=== PATIENT | female | born 1950 | race African-American/Black ===

== ENCOUNTER 2022-09-23 22:43 | Inpatient (IN) | payer MEDICARE, OTHER ==
[~2022-09-23] VITALS: Ht 154.9 cm; Wt 62.1 kg
--- NOTE | 2022-09-23 23:06 | NUR ---
WILBER FROM [facility] TO ER BED 14. AAOX2-3 NOT IN ANY DISTRESS. BROUGHT IN FOR MEDICAL CLEARANCE FOR ADMISSION TO [facility]. PT HAS BEEN REPORTED TO BE AGGRESSIVE TOWARDS STAFF AT THE FACILITY AND REFUSING HER MEDS. PT WAS ALREADY PLACED ON A 5150 HOLD FOR GRAVE DISABILILTY AND DANGER TO OTHERS WRITTEN AT 2150. MD WAS AT THE BEDSIDE FOR EVAL. ORDERS RECEIVED NOTED AND CARRIED OUT. AT THIS TIME, PT IS UNABLE TO PROVIDE URINE SAMPLE.
--- NOTE | 2022-09-23 23:13 | NUR ---
COVID ANTIGEN SWAB COLLECTED AND SENT TO LAB
--- NOTE | 2022-09-23 23:30 | NUR ---
PAYROLL MASTER AT PT'S BEDSIDE
[2022-09-24 00:01] LABS: ALANINE AMINOTRANSFERASE 24 U/L (12-78); ALKALINE PHOSPHATASE 140 U/L (46-116); ASPARTATE AMINOTRANSFERASE 29 U/L (15-37); BILIRUBIN,DIRECT 0.1 mg/dL (0.0-0.2); BILIRUBIN,TOTAL 0.3 mg/dL (0.2-1.0); CALCIUM, SERUM 10.4 mg/dL (8.5-10.1); CARBON DIOXIDE 30 mmol/L (21-32); CHLORIDE 97 mmol/L (98-107); CREATININE 1.1 mg/dL (0.6-1.3); GLUCOSE 127 mg/dL (74-106); POTASSIUM 3.8 mmol/L (3.5-5.1); SODIUM SERUM 136 mmol/L (136-145); TOTAL PROTEIN, SERUM 8.7 g/dL (6.4-8.2); UREA NITROGEN, BLOOD 18 mg/dL (7-18)
[2022-09-24 00:04] LABS: ACETAMINOPHEN 0 ug/ml (10-30); ALCOHOL, BLOOD < 3 mg/dL (0-0)
[2022-09-24 00:35] LABS: BASOPHILS # (AUTO) 0.1 K/uL (0.0-0.2); BASOPHILS % (AUTO) 0.4 % (0.0-2.0); EOSINOPHILS % (AUTO) 1.7 % (0.0-6.0); HEMATOCRIT 40 % (33-45); HEMOGLOBIN 13.1 g/dL (11.5-14.8); LYMPHOCYTES # (AUTO) 1.6 K/uL (0.8-4.8); LYMPHOCYTES % (AUTO) 11.1 % (20.0-44.0); MEAN CORPUSCULAR HGB CONC 32 g/dl (31.0-36.0); MEAN CORPUSCULAR VOLUME 85 fL (82-100); MONOCYTES # (AUTO) 0.9 K/uL (0.1-1.30); MONOCYTES % (AUTO) 6.1 % (2.0-12.0); NEUTROPHILS # (AUTO) 11.3 K/uL (1.8-8.9); NEUTROPHILS % (AUTO) 80.7 % (43.0-81.0); PLATELET COUNT (AUTO) 397 K/uL (150-450); RED BLOOD CELL COUNT(AUTO) 4.78 MIL/uL (4.0-5.2)
[2022-09-24 02:08] LABS: BILIRUBIN,URINE NEGATIVE (NEGATIVE); COLOR,URINE YELLOW (YELLOW); LEUKOCYTE ESTERASE ,URINE NEGATIVE (NEGATIVE); NITRITE, URINE NEGATIVE (NEGATIVE); PH,URINE 6.5 (5.0-8.0); PROTEIN,URINE NEGATIVE (NEGATIVE); UGLUCOSE NEGATIVE (NEGATIVE); UROBILINOGEN,URINE 0.2 EU/dL (0.2)
[2022-09-24 05:05] LABS: BASOPHILS % (MANUAL) 0 % (0.0-2.0); EOSINOPHILS % (MANUAL) 1 % (0-4); LYMPHOCYTES % (MANUAL) 15 % (16-48); MONOCYTES % (MANUAL) 9 % (0-11.0); NEUTROPHILS % (MANUAL) 75 (42-76)
--- NOTE | 2022-09-24 08:44 | NUR ---
report given to marilyn YI for continuity of care.
[2022-09-24] MEDS ORDERED: LORA-259 PO (08:48)
[2022-09-24] MEDS ORDERED: OXCA300T4 PO (08:48)
[2022-09-24] MEDS ORDERED: SENN-175 PO (08:48)
[2022-09-24] MEDS ORDERED: HYDR25TA4 PO (08:48)
[2022-09-24] MEDS ORDERED: CETI-355 PO (08:48)
[2022-09-24] MEDS ORDERED: MAGN400O6 PO (08:48)
[2022-09-24] MEDS ORDERED: LISI-768 PO (08:48)
[2022-09-24] MEDS ORDERED: BISA10SU11 RC (08:48)
[2022-09-24] MEDS ORDERED: HALO5TAB PO (08:48)
[2022-09-24] MEDS ORDERED: ZOLP5TAB2 PO (08:48)
[2022-09-24] MEDS ORDERED: ACET325T53 PO (08:48)
[2022-09-24] MEDS ORDERED: GUAI100S9 PO (08:48)
[2022-09-24] MEDS ORDERED: FERR325T23 PO (08:48)
[2022-09-24] MEDS ORDERED: MULT-134 PO (08:48)
[2022-09-24] MEDS ORDERED: MAG30ORA PO (08:52)
--- NOTE | 2022-09-24 08:55 | NUR ---
RN - ADMISSION NOTES PATIENT WAS BROUGHT IN BY [facility] ER STAFF VIA HOSPITAL BED, PATIENT IS AWAKE,A/O X2,GUARDED,NO ACUTE DISTRESS NOTED. PATIENT IS UNDER DR. KENYON ( PSYCHIATRIST) DNP MELISSA ( REAL ESTATE INSPECTOR ) BOTH MADE AWARE OF THE ADMISSION. UPON FACE TO FACE INTERVIEW WITH THE PATIENT PATIENT IS A/O X2 ,GUARDED,HYPERVERBAL,UNABLE TO FOCUS ON ONE CONVERSATION. NOTED ALSO WITH EASILY IRRITABLE AND ANGRY BEHAVIOR. PATIENT DID ALLOW ME TO DO PARTIAL SKIN ASSESSMENT AND REFUSED TO HAVE PICTURE TAKEN ON SOME PARTS OF HER BODY. PATIENT REFUSED INITIAL BLOOD SUGAR CHECK AND MRSA SWAB.PATIENT IS UNCOOPERATIVE DURING THE ADMISSION PROCESS, NOTED WITH EPISODE OF YELLING AND ANGRY WITH THE POWER GENERATION TECHNICIAN. STATED" I'M NOT A PRISONER THAT YOU HAVE TO ASK ME QUESTIONS,I ANSWER YOU SOME AND THAT IS ENOUGH, I DON'T SIGN ANYTHING". PATIENT REFUSED TO SING ADMISSION PAPERS. CONTRABAND DONE. ORIENTED PATIENT IN THE ROOM AND UNIT POLICIES.ALL NEEDS ATTENDED AND ANTICIPATED. WILL CONT. MONITORING FOR SAFETY AND BEHAVIOR.
--- NOTE | 2022-09-24 08:56 | NUR ---
transferred to [facility] in stable condition.
[2022-09-24] MEDS ORDERED: BLOOD SUGAR DIAGNOSTIC 1 EACH STRIP IN ONE (10:00)
[2022-09-24] MEDS ORDERED: ACETAMINOPHEN 325 MG TABLET PO PRN (10:00)
[2022-09-24] MEDS ORDERED: MAGNESIUM HYDROXIDE 30 ML UDC PO PRN (10:00)
[2022-09-24] MEDS ORDERED: MAG HYDROX/AL HYDROX/SIMETH 30 ML UDC PO PRN (10:00)
[2022-09-24] MEDS ORDERED: ZOLPIDEM TARTRATE 5 MG TABLET PO PRN (10:00)
--- NOTE | 2022-09-24 10:57 | NUR ---
AMAURI Initial Discharge Plan: Patient currently resides at [place] [id number]; ([phone]). AMAURI spoke with Jazmyn Muller who stated that pt is welcomed back. AMAURI will work with the MD, family, and treatment team to help coordinate appropriate discharge.
--- NOTE | 2022-09-24 10:57 | NUR ---
Treatment Plan: Pt refused to sign treatment plan and was suspicious.
--- NOTE | 2022-09-24 10:57 | NUR ---
AMAURI Clinical Note: Pt placed on a 5150 hold for danger to others and GD. Per hold, pt has been aggressive at her facility. She has been yelling and refusing medications. [place] [address]; ([phone]). AMAURI spoke with Jazmyn Muller who stated that pt is welcomed back.
--- NOTE | 2022-09-24 11:24 | NUR ---
AMAURI Note: AMAURI spoke with Jazmyn Muller from [facility] ([phone]) who stated that pt has a probate conservator from the [facility]. Jazmyn stated that she will fax the probate conservator documents to this com writer.
--- NOTE | 2022-09-24 11:25 | NUR ---
Conservator: AMAURI contacted pt's probate conservator ([phone]) Terra and left a voicemail to fax documents and to contact this copywriter. SW left a detailed voicemail.
--- NOTE | 2022-09-24 11:57 | NUR ---
AMAURI NOTE: AMAURI CONTACTED THE COURT [phone] AND ASKED IF PT IS PROBATE CONSERVED THROUGH [facility] ARE [facility] ACCEPTABLE - THEY STATED THEY ARE UNSURE. AMAURI CONTACTED VENTILATION WORKER KADE ([phone]) AND STATED HE IS UNSURE AND THAT THIS WRITE SHOULD CALL PUBLIC GUARDIAN OFFICE. AMAURI CONTACTED PUBLIC GUARDIAN OFFICE AND SPOKE WITH KINGA ([phone]) SHE STATED THAT SHE BELIEVES THAT THE [facility] ARE NOT ACCEPTABLE DUE TO IT BEING IN [place].
--- NOTE | 2022-09-24 12:47 | NUR ---
Conservator: [facility][phone][facility] documents in patient's chart.
--- NOTE | 2022-09-24 13:36 | NUR ---
SW Family: SW attempted to contact pt's daughter Olline ([phone]) but phone number does not exist.
[2022-09-24 16:00] VITALS: BP 110/92
[2022-09-24] MEDS: OXCARBAZEPINE 150 MG TABLET PO SCH (17:21)
[2022-09-24] MEDS: LORAZEPAM 0.5 MG TABLET PO PRN (17:23)
--- NOTE | 2022-09-24 17:26 | NUR ---
RN-NOTES NOTED PATIENT SINGING AND TALKING TO SELF LOUDLY ,REDIRECTED AND ATIVAN 1MG P.O GIVEN PRN ORDER. WILL CONT. MONITORING FOR SAFETY AND BEHAVIOR.
--- NOTE | 2022-09-24 18:33 | NUR ---
RN-NOTES PATIENT LYING IN BED SLEEPING WITH BREATHING EVEN AND NONLABORED EASILY AROUSED,NO ACUTE DISTRESS NOTED.
--- NOTE | 2022-09-24 20:30 | NUR ---
RN NOTES: PATIENT RESTING IN BED,ANXIOUS EASILY AGITATED, PARANOID GUARDED, DISORGNIZED ,NO ACUTE DISTRESS NOTED PATIENT TALKING AND MUMBLING TO SELF. SAFETY PRECAUTIONS MAINTANIED, ENCOURAGED TO VERBALIZED ANY FEELING OR CONCERN,ALL NEEDS ATTENDED AND ANTICIPATED. WILL CONTINUE TO MONITORING FOR SAFETY AND BEHAVIOR.
[2022-09-24] MEDS ORDERED: OLANZAPINE 5 MG TABLET PO SCH (22:00)
--- NOTE | 2022-09-25 05:15 | NUR ---
RN NOTES:PT. REFUSED SKIN ASSESSMENT DUE TO UNCOOPERTIVE, AGGRESSIVE, NON REDIRECTABLE, ENCOURAGED X 3 PT. STRONGLY REFUSED, PER PT. STATED MY SKIN IS DRY .
[2022-09-25 07:00] LABS: CHOLESTEROL 150 mg/dL (<200); HDL CHOLESTEROL 53 mg/dL (40-60); LDL 86 mg/dL (0-99); TRIGLYCERIDES 49 mg/dL (30-150)
[2022-09-25 07:05] LABS: ALANINE AMINOTRANSFERASE 19 U/L (12-78); ALKALINE PHOSPHATASE 102 U/L (46-116); ASPARTATE AMINOTRANSFERASE 21 U/L (15-37); BILIRUBIN,TOTAL 0.3 mg/dL (0.2-1.0); CALCIUM, SERUM 9.1 mg/dL (8.5-10.1); CARBON DIOXIDE 25 mmol/L (21-32); CHLORIDE 99 mmol/L (98-107); CREATININE 1.2 mg/dL (0.6-1.3); GLUCOSE 157 mg/dL (74-106); POTASSIUM 3.7 mmol/L (3.5-5.1); SODIUM SERUM 135 mmol/L (136-145); TOTAL PROTEIN, SERUM 7.1 g/dL (6.4-8.2); UREA NITROGEN, BLOOD 18 mg/dL (7-18)
[2022-09-25 08:00] VITALS: BP 128/84
--- NOTE | 2022-09-25 08:40 | NUR ---
Probate Conservator: AMAURI received probate conservatorship [facility] ([phone]) documents from conservator and it has been placed in pt's chart. SW attempted to contact Terra second time 09/25/2022 at 8:40AM and left a detailed voicemail if she can provide history of pt how she came to [place] and if she has any support. AMAURI also stated that this sports book writer has followed up with public guardian office and they stated that grossman are not effective since it has been granted at [place] for probate conservator.
--- NOTE | 2022-09-25 08:56 | NUR ---
Probate Conservator: AMUARI received a call from probate conservatorship Terra ([phone]) who left a voicemail stating that she has had pt for about a year. She stated that pt left [place] and went to [place] because pt stated she is originally from [place]. Pt had stated to conservator that she wants to stay in [place]. Terra stated that she is aware of the grossman that are not effective in [facility]. She stated that her nursing facility is currently working on guardianship for pt. AMAURI shared this information to Dr. Martínez.
[2022-09-25] MEDS: OXCARBAZEPINE 150 MG TABLET PO SCH ×2 (09:04→17:46)
--- NOTE | 2022-09-25 09:10 | NUR ---
RN-NOTES ENTER[employer]ISE RESOURCE PLANNING CONSULTANT MADE ALVARO TORRES THAT PATIENT'S MEDICATION NEED TO BE RECONCILE.
--- NOTE | 2022-09-25 09:45 | NUR ---
WOUND CARE CONSULT: DISCUSSED DRY SKIN ISSUE WITH NURSING STAFF AND PROVIDER. EUCERIN CREAM RECOMMENDED AND DISCUSSED WITH NURSING STAFF.
[2022-09-25] MEDS: LORAZEPAM 0.5 MG TABLET PO PRN (10:46)
[2022-09-25] MEDS: MINERAL OIL/PETROLATUM,WHITE 120 GM JAR TP SCH (10:47)
--- NOTE | 2022-09-25 10:52 | NUR ---
RN-NOTES NOTED PATIENT SCREAMING AND YELLING WITH NO REASON. REDIRECTED AND ATIVAN 1MG P.O GIVEN PRN ORDER. WILL CONT. MONITORING FOR SAFETY AND BEHAVIORS.
--- NOTE | 2022-09-25 11:55 | NUR ---
RN-NOTES PATIENT IN BED AWAKE,QUIET,CALM NO ACUTE DISTRESS NOTED.
[2022-09-25 16:00] VITALS: BP 126/67
--- NOTE | 2022-09-25 16:47 | NUR ---
RN-NOTES PATIENT SCREAMING AND YELLING WITH THREATENING TONE OF VOICE AT THE STAFF IN THE NURSE STATION USING FOUL LANGUAGE. UNABLE TO REDIRECT. DR. KENYON MADE AWARE OF THE BEHAVIOR WITH T.O ORDER OF HALDOL 5MG IM ONCE AND BENADRYL 25MG IM ONCE. NOTED AND CARRIED OUT.
[2022-09-25] MEDS ORDERED: diphenhydrAMINE HCL 50 MG/ML VIAL IM ONE (17:00)
[2022-09-25] MEDS ORDERED: HALOPERIDOL LACTATE INJ 5 MG/ML VIAL IM ONE (17:00)
--- NOTE | 2022-09-25 19:14 | NUR ---
RN-NOTES PATIENT LYING IN BED AWAKE,A/O X1,GUARDED,CALM ,NO ACUTE DISTRESS NOTED. NOTED PATIENT WITH DEMANDING AND ARGUMENTATIVE BEHAVIOR. REFUSED SHOWER THIS SHIFT DESPITE ENCOURAGEMENT.ALL NEEDS ATTENDED AND ANTICIPATED. PATIENT ABLE TO AMBULATE WITH STEADY GAIT.WILL ENDORSE TO INCOMING NURSE FOR THE CONTINUITY OF CARE.
[2022-09-25 20:00] VITALS: BP 125/70
--- NOTE | 2022-09-25 20:21 | NUR ---
RN NOTES: PATIENT RESTING IN BED,ANXIOUS EASILY AGITATED, PARANOID GUARDED, DISORGNIZED ,HYPERVERBAL , DELUSIONAL , DISHELVED,POOR HYGIENE, REFUSED TO TAKE SHOWER, NO ACUTE DISTRESS NOTED PATIENT TALKING AND MUMBLING TO SELF. SAFETY PRECAUTIONS MAINTANIED, ENCOURAGED TO VERBALIZED ANY FEELING OR CONCERN,ALL NEEDS ATTENDED AND ANTICIPATED. WILL CONTINUE TO MONITORING FOR SAFETY AND BEHAVIOR.
[2022-09-25] MEDS: OLANZAPINE 5 MG TABLET PO SCH (22:16)
[2022-09-26 08:00] VITALS: BP 159/99
[2022-09-26] MEDS: LORAZEPAM 0.5 MG TABLET PO PRN (08:17)
[2022-09-26] MEDS: OXCARBAZEPINE 150 MG TABLET PO SCH ×2 (08:17→16:14)
[2022-09-26] MEDS: MINERAL OIL/PETROLATUM,WHITE 120 GM JAR TP SCH (08:18)
--- NOTE | 2022-09-26 08:20 | NUR ---
RN-NOTES NOTED PATIENT RESPONDING TO INTERNAL STIMULI,TALKING ,SINGING AND MUMBLING TO SELF. ATIVAN 1MG P.O GIVEN PRN ORDER. WILL CONT. MONITORING FOR SAFETY AND BEHAVIOR.
--- NOTE | 2022-09-26 09:20 | NUR ---
RN-NOTES PATIENT LYING IN BED AWAKE,A/OX1 ,QUIET,CALM NO ACUTE DISTRESS NOTED.
[2022-09-26 16:13] VITALS: BP 142/72
[2022-09-26] MEDS ORDERED: MAGNESIUM HYDROXIDE 30 ML UDC PO PRN (17:00)
[2022-09-26] MEDS ORDERED: LORAZEPAM 1 MG TABLET PO SCH (17:00)
[2022-09-26] MEDS ORDERED: OXCARBAZEPINE 150 MG TABLET PO SCH (17:00)
[2022-09-26] MEDS ORDERED: ACETAMINOPHEN 325 MG TABLET PO PRN (17:00)
[2022-09-26] MEDS ORDERED: MAG HYDROX/AL HYDROX/SIMETH 30 ML UDC PO PRN (17:00)
[2022-09-26] MEDS ORDERED: GUAIFENESIN 300 MG/15 ML UDC PO PRN (17:00)
[2022-09-26] MEDS ORDERED: BISACODYL SUPP (10 MG) 10 MG/SUPP.RECT SUPP.RECT RC PRN (17:00)
--- NOTE | 2022-09-26 18:40 | NUR ---
RN-NOTES PATIENT IS VISIBLE IN THE UNIT AWAKE,A/O X1,GUARDED,NOTED RESPONDING INTERNAL STIMULI,PRN MEDICATION GIVEN. NO ACUTE DISTRESS NOTED. NOTED PATIENT WITH DEMANDING ,EASILY ANGRY AND ARGUMENTATIVE BEHAVIOR. REFUSED SHOWER THIS SHIFT DESPITE ENCOURAGEMENT.ALL NEEDS ATTENDED AND ANTICIPATED. PATIENT ABLE TO AMBULATE WITH STEADY GAIT.WILL ENDORSE TO INCOMING NURSE FOR THE CONTINUITY OF CARE.
[2022-09-26] MEDS: OLANZAPINE 5 MG TABLET PO SCH (21:17)
[2022-09-26] MEDS ORDERED: ZOLPIDEM TARTRATE 5 MG TABLET PO SCH (22:00)
[2022-09-27 08:00] VITALS: BP 138/77
[2022-09-27] MEDS: OXCARBAZEPINE 150 MG TABLET PO SCH ×2 (08:21→16:54)
[2022-09-27] MEDS: SENNOSIDES 8.6 MG TABLET PO SCH (08:22)
[2022-09-27] MEDS: cetrizine 10 MG TABLET PO SCH (08:22)
[2022-09-27] MEDS: HYDROCHLOROTHIAZIDE 25 MG TABLET PO SCH (08:22)
[2022-09-27] MEDS: MULTIVITAMINS,THERAGRAN 1 UDTAB TABLET PO SCH (08:22)
[2022-09-27] MEDS: FERROUS SULFATE (325 MG) 325 MG/TAB TABLET PO SCH (08:22)
[2022-09-27] MEDS: LISINOPRIL (5MG) 5 MG TABLET PO SCH (08:23)
[2022-09-27] MEDS: MINERAL OIL/PETROLATUM,WHITE 120 GM JAR TP SCH (08:42)
[2022-09-27 16:00] VITALS: BP 144/73
[2022-09-27 20:27] VITALS: BP 137/60
[2022-09-27] MEDS: OLANZAPINE 5 MG TABLET PO SCH (21:18)
[2022-09-27] MEDS: LORAZEPAM 0.5 MG TABLET PO PRN (22:19)
[2022-09-28] MEDS: IBUPROFEN 400 MG TABLET PO PRN ×2 (00:40→16:46)
--- NOTE | 2022-09-28 00:41 | NUR ---
RN NOTE PATIENT REQUESTED MOTRIN PO AND CHANGED HER MIND NOT TO TAKE IT. CHARGE NURSE AWARE.
--- NOTE | 2022-09-28 04:41 | NUR ---
RN NOTE PATIENT C/O ITCHINESS ALL OVER HER BODY DUE TO PSORIASIS. NOTIFIED DR. ENGLAND WITH NEW ORDER OF BENADRYL 25MG PO Q8HR PRN NOTED AND CARRIED OUT.
[2022-09-28] MEDS: diphenhydrAMINE HCL ELIX 25 MG/10 ML UDC PO PRN ×3 (04:58→21:14)
--- NOTE | 2022-09-28 07:23 | NUR ---
[facility] RN NOTES RECEIVED PATIENT LYING IN BED, AWAKEN, A/O X2, CALM, WITHDRAWN, COOPERATIVE. REQUESTED FOR MORE LIPBALM. NO ACUTE DISTRESS NOTED. NO SOB NOTED, BREATHING EVEN AND UNLABORED, SAFETY MEASURES IN PLACE: BED AT LOWEST AND LOCKED POSITION, BED ALARM ON, FREQUENT VISUAL CHECK FOR SAFETY AND MONITORING BEHAVIOR. WILL CONTINUE PLAN OF CARE.
[2022-09-28 08:00] VITALS: BP 160/84
[2022-09-28] MEDS: MULTIVITAMINS,THERAGRAN 1 UDTAB TABLET PO SCH (08:59)
[2022-09-28] MEDS: SENNOSIDES 8.6 MG TABLET PO SCH (09:00)
[2022-09-28] MEDS: HYDROCHLOROTHIAZIDE 25 MG TABLET PO SCH (09:00)
[2022-09-28] MEDS: OXCARBAZEPINE 150 MG TABLET PO SCH ×2 (09:00→16:39)
[2022-09-28] MEDS: cetrizine 10 MG TABLET PO SCH (09:01)
[2022-09-28] MEDS: LISINOPRIL (5MG) 5 MG TABLET PO SCH (09:01)
[2022-09-28] MEDS: FERROUS SULFATE (325 MG) 325 MG/TAB TABLET PO SCH (09:01)
[2022-09-28] MEDS: MINERAL OIL/PETROLATUM,WHITE 120 GM JAR TP SCH (09:02)
--- NOTE | 2022-09-28 14:00 | NUR ---
[facility] RN NOTES - PT COMPLAINING OF GENERALIZED ITCH ON THE BACK, REQUESTED FOR DIPHENHYDRAMINE - ADMINISTERED 25 MG/10 ML PO. WILL CONTINUE TO MONITOR.
[2022-09-28 16:00] VITALS: BP 156/83
--- NOTE | 2022-09-28 18:51 | NUR ---
[facility] RN CLOSING NOTES PATIENT LYING IN BED, AWAKE A/OX2, CALM, WITHDRAWN, COOPERATIVE, MED COMPLIANT. NO ACUTE DISTRESS NOTED. NO SOB NOTED, BREATHING EVEN AND UNLABORED, SAFETY MEASURES IN MAINTAINED. ALL DUE MEDS GIVEN. ALL NEEDS MET, KEPT SAFE. WILL ENDORSE TO SPECIALTY PLANT SUPERVISOR NURSE.
[2022-09-28 20:00] VITALS: BP 142/72
[2022-09-28] MEDS: OLANZAPINE 5 MG TABLET PO SCH (21:12)
[2022-09-28] MEDS: VITAMINS A AND D 56.7 GM TUBE TP SCH (23:16)
[2022-09-29] MEDS: diphenhydrAMINE HCL ELIX 25 MG/10 ML UDC PO PRN ×2 (06:26→20:17)
[2022-09-29 08:00] VITALS: BP 144/76
[2022-09-29] MEDS: OXCARBAZEPINE 150 MG TABLET PO SCH ×2 (08:18→16:18)
[2022-09-29] MEDS: MULTIVITAMINS,THERAGRAN 1 UDTAB TABLET PO SCH (08:19)
[2022-09-29] MEDS: FERROUS SULFATE (325 MG) 325 MG/TAB TABLET PO SCH (08:19)
[2022-09-29] MEDS: LISINOPRIL (5MG) 5 MG TABLET PO SCH (08:19)
[2022-09-29] MEDS: SENNOSIDES 8.6 MG TABLET PO SCH (08:19)
[2022-09-29] MEDS: cetrizine 10 MG TABLET PO SCH (08:19)
[2022-09-29] MEDS: HYDROCHLOROTHIAZIDE 25 MG TABLET PO SCH (08:19)
[2022-09-29] MEDS: MINERAL OIL/PETROLATUM,WHITE 120 GM JAR TP SCH (08:41)
[2022-09-29] MEDS: VITAMINS A AND D 56.7 GM TUBE TP SCH ×2 (08:41→16:18)
[2022-09-29 16:00] VITALS: BP 120/63
[2022-09-29 20:09] VITALS: BP 155/90
[2022-09-29] MEDS: OLANZAPINE 5 MG TABLET PO SCH (21:03)
[2022-09-30] MEDS: IBUPROFEN 400 MG TABLET PO PRN (01:59)
[2022-09-30 08:00] VITALS: BP 145/77
[2022-09-30] MEDS: cetrizine 10 MG TABLET PO SCH (08:42)
[2022-09-30] MEDS: MULTIVITAMINS,THERAGRAN 1 UDTAB TABLET PO SCH (08:42)
[2022-09-30] MEDS: FERROUS SULFATE (325 MG) 325 MG/TAB TABLET PO SCH (08:43)
[2022-09-30] MEDS: SENNOSIDES 8.6 MG TABLET PO SCH (08:43)
[2022-09-30] MEDS: OXCARBAZEPINE 150 MG TABLET PO SCH ×2 (08:43→17:17)
[2022-09-30] MEDS: HYDROCHLOROTHIAZIDE 25 MG TABLET PO SCH (08:43)
[2022-09-30] MEDS: LISINOPRIL (5MG) 5 MG TABLET PO SCH (08:44)
[2022-09-30] MEDS: VITAMINS A AND D 56.7 GM TUBE TP SCH ×2 (08:44→17:17)
[2022-09-30] MEDS: MINERAL OIL/PETROLATUM,WHITE 120 GM JAR TP SCH (08:44)
--- NOTE | 2022-09-30 12:52 | NUR ---
Court Notification: SW contacted pt's probate conservatorship Cori ([phone]) and left a voicemail of pt's 1818 hearing.
--- NOTE | 2022-09-30 13:49 | NUR ---
Court Hearing: Patient's court hearing for 2070 was today and it was upheld for GD.
[2022-09-30 16:00] VITALS: BP 141/82
--- NOTE | 2022-09-30 19:45 | NUR ---
RN OPENING NOTES: RECEIVED PATIENT AWAKE IN BED, BED IN LOW POSITION, NO COMPLAIN OF PAIN AND DISCOMFORT AT THIS TIME ,ON ROOM AIR SATURATING WELL, PATIENT AMBULATES FROM BED TO RESTROOM REMIND TO CALL WHEN NEEDED ASSISTANCE, NO BEHAVIORAL CHANGES HAS BEEN OBSERVED, KEPT CLEAN AND DRY ALL NEEDS MET, CONTINUE TO MONITOR.
[2022-09-30 20:00] VITALS: BP 143/79
[2022-09-30 20:20] VITALS: BP 143/79
[2022-09-30] MEDS: OLANZAPINE 5 MG TABLET PO SCH (21:44)
--- NOTE | 2022-09-30 23:21 | NUR ---
RN NOTES: PATIENT WAS FOUND IN RESTROOM SITTING UNABLE TO STAND, ASSIST PATIENT BACK TO BED, V/S ARE WITHIN THE NORMAL RANGE, BLOOD SUGAR AT 123, BP- 129/68, HR-80, O2 SAT AT 95% ROOM AIR, TEMP-97.8 PATIENT COMPLAIN OF UPSET STOMACH JUST GAVE MAALOX 30MG PRN Q6H, STONE HAND OBSERVED A 15 SECONDS SHAKING, NOTIFY DR JOHN VALENTIN AND ORDER TO MONITOR, PATIENT WAS BACK TO HERSELF REMIND PATIENT TO CALL WHEN NEEDED ASSISTANCE, WILL CONTINUE TO MONITOR. -
[2022-10-01] MEDS: IBUPROFEN 400 MG TABLET PO PRN (06:31)
[2022-10-01 08:00] VITALS: BP 130/70
[2022-10-01] MEDS: SENNOSIDES 8.6 MG TABLET PO SCH (08:35)
[2022-10-01] MEDS: FERROUS SULFATE (325 MG) 325 MG/TAB TABLET PO SCH (08:35)
[2022-10-01] MEDS: MULTIVITAMINS,THERAGRAN 1 UDTAB TABLET PO SCH (08:36)
[2022-10-01] MEDS: LISINOPRIL (5MG) 5 MG TABLET PO SCH (08:36)
[2022-10-01] MEDS: OXCARBAZEPINE 150 MG TABLET PO SCH ×2 (08:36→16:28)
[2022-10-01] MEDS: cetrizine 10 MG TABLET PO SCH (08:36)
[2022-10-01] MEDS: HYDROCHLOROTHIAZIDE 25 MG TABLET PO SCH (08:36)
[2022-10-01] MEDS: VITAMINS A AND D 56.7 GM TUBE TP SCH ×2 (08:40→16:29)
[2022-10-01] MEDS: MINERAL OIL/PETROLATUM,WHITE 120 GM JAR TP SCH (08:41)
[2022-10-01] MEDS: LORAZEPAM 0.5 MG TABLET PO PRN (13:09)
--- NOTE | 2022-10-01 13:12 | NUR ---
RN-NOTES NOTED PATIENT TALKING TO SELF AND SINGING LOUDLY. ATIVAN 1MG P.O GIVEN PRN ORDER. WILL CONT. MONITORING FOR SAFETY AND BEHAVIOR.
--- NOTE | 2022-10-01 14:15 | NUR ---
RN-NOTES PATIENT LYING IN BED WAKE,A/O X2 CALM,NO ACUTE DISTRESS NOTED.
[2022-10-01 16:00] VITALS: BP 103/67
--- NOTE | 2022-10-01 17:43 | NUR ---
RN-NOTES PATIENT ISOLATIVE STAYS IN THE ROOM THIS SHIFT,REST TO ATTEND GROUPS DESPITE ENCOURAGEMENT,A/O X2,GUARDED,NO ACUTE DISTRESS,NO COMPLAIN NOTED THIS SHIFT. COMPLIANT WITH MEDICATIONS. PATIENT ABLE TO USE THE COMMODE NEXT TO HER BED. ALL NEEDS ATTENDED AND ANTICIPATED. WILL CONT. MONITORING FOR SAFETY AND BEHAVIOR.WILL ENDORSE TO THE NEXT SHIFT FOR CONTINUITY OF CARE. Addendum: 10/01/22 at 1748 by JARRET ALONSO RN CORRECTIONS ON MY ABOVE NOTES . PATIENT REFUSED GROUPS.
--- NOTE | 2022-10-01 19:30 | NUR ---
[facility] RN NOTE, RECEIVED PATIENT AWAKE AND IN BED, NO S/S OR COMPLAINTS OF PAIN AT THIS TIME. PATIENT IS DISPLAYING NO S/S OF APPARENT DISTRESS AT THIS TIME. PATIENT BREATHING IS UNLABORED WITH EQUAL RISE AND FALL OF THE CHEST. PATIENT IS ALERT AND ORIENTED X 2 ON ROOM AIR WITH A SPO2 98%. PATIENT IS COMPLIANT WITH MEDICATIONS, CONFUSED AT TIMES, ANXIOUS, PARANOID, RESPONDING TO INTERNAL STIMULI, AND COOPERATIVE. PATIENT DENIES SUICIDAL AND HOMICIDAL IDEATIONS AT THIS TIME. PATIENT ASSISTED WITH TURNING AND REPOSITIONING Q2HR AND PRN FOR COMFORT AND CIRCULATION. PATIENT HAS NO NEEDS AT THIS TIME. PATIENT EDUCATED ON THE USE OF THE CALL LOPEZ. PATIENT BED SIDE RAILS UP X 2 FOR SAFETY. PATIENT BED IS LOCKED AND LOW. WILL CONTINUE TO MONITOR THIS PATIENT Q15 MINUTES WITH THE HELP OF STAFF TO MAINTAIN SAFETY.
[2022-10-01 20:00] VITALS: BP 118/58
[2022-10-01] MEDS: OLANZAPINE 5 MG TABLET PO SCH (21:35)
[2022-10-01] MEDS: diphenhydrAMINE HCL ELIX 25 MG/10 ML UDC PO PRN (21:42)
--- NOTE | 2022-10-01 21:42 | NUR ---
[facility] RN NOTE, PATIENT HAS A COMPLAINT OF CHRONIC GENERALIZED PRURITUS AND IS REQUESTING BENADRYL AT THIS TIME. PATIENT VITAL SIGNS ARE STABLE. GAVE BENADRYL 25MG PO Q8HR PRN ORDERED. WILL REASSESS PATIENT AND I WILL CONTINUE TO MONITOR THIS PATIENT WITH THE HELP OF STAFF.
[2022-10-02 07:33] LABS: BASOPHILS % (AUTO) 0.5 % (0.0-2.0); EOSINOPHILS % (AUTO) 9.1 % (0.0-6.0); HEMATOCRIT 34 % (33-45); HEMOGLOBIN 10.7 g/dL (11.5-14.8); LYMPHOCYTES # (AUTO) 0.9 K/uL (0.8-4.8); LYMPHOCYTES % (AUTO) 12.8 % (20.0-44.0); MEAN CORPUSCULAR HGB CONC 32 g/dl (31.0-36.0); MEAN CORPUSCULAR VOLUME 86 fL (82-100); MONOCYTES # (AUTO) 0.5 K/uL (0.1-1.30); MONOCYTES % (AUTO) 7.5 % (2.0-12.0); NEUTROPHILS # (AUTO) 5.1 K/uL (1.8-8.9); NEUTROPHILS % (AUTO) 70.1 % (43.0-81.0); PLATELET COUNT (AUTO) 440 K/uL (150-450); RED BLOOD CELL COUNT(AUTO) 3.94 MIL/uL (4.0-5.2); WHITE BLOOD COUNT (AUTO) 7.3 K/uL (4.3-11.0)
[2022-10-02 07:49] LABS: CALCIUM, SERUM 8.6 mg/dL (8.5-10.1)
[2022-10-02 08:00] VITALS: BP 142/73
[2022-10-02] MEDS: SENNOSIDES 8.6 MG TABLET PO SCH (08:19)
[2022-10-02] MEDS: MINERAL OIL/PETROLATUM,WHITE 120 GM JAR TP SCH (08:19)
[2022-10-02] MEDS: cetrizine 10 MG TABLET PO SCH (08:19)
[2022-10-02] MEDS: VITAMINS A AND D 56.7 GM TUBE TP SCH ×2 (08:19→16:53)
[2022-10-02] MEDS: OXCARBAZEPINE 150 MG TABLET PO SCH ×2 (08:20→16:53)
[2022-10-02] MEDS: LISINOPRIL (5MG) 5 MG TABLET PO SCH (08:20)
[2022-10-02] MEDS: FERROUS SULFATE (325 MG) 325 MG/TAB TABLET PO SCH (08:20)
[2022-10-02] MEDS: HYDROCHLOROTHIAZIDE 25 MG TABLET PO SCH (08:20)
[2022-10-02] MEDS: MULTIVITAMINS,THERAGRAN 1 UDTAB TABLET PO SCH (08:22)
[2022-10-02 16:00] VITALS: BP 129/72
--- NOTE | 2022-10-02 20:03 | NUR ---
RN NOTES: PATIENT RESTING IN BED,ANXIOUS EASILY AGITATED, PARANOID GUARDED, DISORGNIZED ,NO ACUTE DISTRESS NOTED PATIENT TALKING AND MUMBLING TO SELF.MED COMPLIANT , SAFETY PRECAUTIONS MAINTANIED, ENCOURAGED TO VERBALIZED ANY FEELING OR CONCERN,ALL NEEDS ATTENDED AND ANTICIPATED. WILL CONTINUE TO MONITORING FOR SAFETY AND BEHAVIOR.
[2022-10-02 21:00] VITALS: BP 133/69
[2022-10-02] MEDS: OLANZAPINE 5 MG TABLET PO SCH (21:03)
[2022-10-03 08:00] VITALS: BP 164/86
[2022-10-03] MEDS: FERROUS SULFATE (325 MG) 325 MG/TAB TABLET PO SCH (08:41)
[2022-10-03] MEDS: MULTIVITAMINS,THERAGRAN 1 UDTAB TABLET PO SCH (08:41)
[2022-10-03] MEDS: OXCARBAZEPINE 150 MG TABLET PO SCH ×2 (08:41→16:32)
[2022-10-03] MEDS: cetrizine 10 MG TABLET PO SCH (08:41)
[2022-10-03] MEDS: LISINOPRIL (5MG) 5 MG TABLET PO SCH (08:41)
[2022-10-03] MEDS: HYDROCHLOROTHIAZIDE 25 MG TABLET PO SCH (08:42)
[2022-10-03] MEDS: MINERAL OIL/PETROLATUM,WHITE 120 GM JAR TP SCH (08:42)
[2022-10-03] MEDS: VITAMINS A AND D 56.7 GM TUBE TP SCH ×2 (08:43→16:31)
[2022-10-03] MEDS: SENNOSIDES 8.6 MG TABLET PO SCH (08:43)
[2022-10-03 16:00] VITALS: BP 141/64
--- NOTE | 2022-10-03 20:06 | NUR ---
[facility] RN NOTE, RECEIVED PATIENT AWAKE AND IN BED, NO S/S OR COMPLAINTS OF PAIN AT THIS TIME. PATIENT IS DISPLAYING NO S/S OF APPARENT DISTRESS AT THIS TIME. PATIENT BREATHING IS UNLABORED WITH EQUAL RISE AND FALL OF THE CHEST. PATIENT IS ALERT AND ORIENTED X 2 ON ROOM AIR WITH A SPO2 96%. PATIENT IS COMPLIANT WITH MEDICATIONS, CONFUSED AT TIMES, DEMANDING, POLITE, AND COOPERATIVE. PATIENT DENIES SUICIDAL AND HOMICIDAL IDEATIONS AT THIS TIME. PATIENT ASSISTED WITH TURNING AND REPOSITIONING Q2HR AND PRN FOR COMFORT AND CIRCULATION. PATIENT HAS NO NEEDS AT THIS TIME. PATIENT EDUCATED ON THE USE OF THE CALL LOPEZ. PATIENT BED SIDE RAILS UP X 2 FOR SAFETY. PATIENT BED IS LOCKED AND LOW. WILL CONTINUE TO MONITOR THIS PATIENT Q15 MINUTES WITH THE HELP OF STAFF TO MAINTAIN SAFETY.
[2022-10-03 20:52] VITALS: BP 116/58
[2022-10-03] MEDS: OLANZAPINE 5 MG TABLET PO SCH (22:10)
[2022-10-04 08:00] VITALS: BP 152/79
[2022-10-04] MEDS: OXCARBAZEPINE 150 MG TABLET PO SCH ×2 (08:20→16:53)
[2022-10-04] MEDS: LISINOPRIL (5MG) 5 MG TABLET PO SCH (08:21)
[2022-10-04] MEDS: MULTIVITAMINS,THERAGRAN 1 UDTAB TABLET PO SCH (08:21)
[2022-10-04] MEDS: HYDROCHLOROTHIAZIDE 25 MG TABLET PO SCH (08:21)
[2022-10-04] MEDS: FERROUS SULFATE (325 MG) 325 MG/TAB TABLET PO SCH (08:21)
[2022-10-04] MEDS: cetrizine 10 MG TABLET PO SCH (08:21)
[2022-10-04] MEDS: VITAMINS A AND D 56.7 GM TUBE TP SCH ×2 (08:22→16:53)
[2022-10-04] MEDS: MINERAL OIL/PETROLATUM,WHITE 120 GM JAR TP SCH (08:22)
[2022-10-04] MEDS: SENNOSIDES 8.6 MG TABLET PO SCH (08:23)
[2022-10-04 16:00] VITALS: BP 164/87
[2022-10-04 20:49] VITALS: BP 150/78
[2022-10-04] MEDS: OLANZAPINE 5 MG TABLET PO SCH (21:25)
[2022-10-05 08:00] VITALS: BP 151/88
--- NOTE | 2022-10-05 08:03 | NUR ---
Discharge Note: Patient will be discharged to [facility] facility to [facility] [address] [place] [address]; ([phone]) via Ambulance transportation at 2PM. Anesthesia Technician spoke with Jazmyn aircraft lay out worker at [facility] ([phone]) who stated patient will be accepted at facility today. Patient is alert and oriented x2 and is not able to plan for self-care at this time but is willing to accept care provided by the facility. Patient denies any suicidal or homicidal ideations. Patient is aware and agreeable with discharge plans. Patients probate conservator from [facility] ([phone]) is aware. Patient will continue to follow-up with (psychiatrist) Dr. Butcher located at [address] [place] [address]; ([phone]) and (lath tier) Dr. Flowers [address], [place] [address]; ([phone]). Patient presents with euthymic mood and congruent affect.
[2022-10-05] MEDS: cetrizine 10 MG TABLET PO SCH (08:19)
[2022-10-05 08:20] VITALS: BP 151/88
[2022-10-05] MEDS: OXCARBAZEPINE 150 MG TABLET PO SCH (08:20)
[2022-10-05] MEDS: SENNOSIDES 8.6 MG TABLET PO SCH (08:20)
[2022-10-05] MEDS: LISINOPRIL (5MG) 5 MG TABLET PO SCH (08:20)
[2022-10-05] MEDS: HYDROCHLOROTHIAZIDE 25 MG TABLET PO SCH (08:20)
[2022-10-05] MEDS: MULTIVITAMINS,THERAGRAN 1 UDTAB TABLET PO SCH (08:20)
[2022-10-05] MEDS: FERROUS SULFATE (325 MG) 325 MG/TAB TABLET PO SCH (08:20)
[2022-10-05] MEDS: VITAMINS A AND D 56.7 GM TUBE TP SCH (08:21)
[2022-10-05] MEDS: MINERAL OIL/PETROLATUM,WHITE 120 GM JAR TP SCH (08:21)
--- NOTE | 2022-10-05 15:40 | NUR ---
NURSE NOTE: 72 YEAR OLD FEMALE DISCHARGED TO [facility] IN [place]. COMPLIANT WITH MEDS, COOPERATIVE WITH TREATMENT PLANS. PT DENIES SI/HI AND INSTRUCTED TO CALL 911 IF DEVELOPING SI/HI. BEHAVIOR IMPROVED, PSYCHIATRIC TX PLANS MET, MEDICAL TX PLANS DEFERRED TO CONTINUAL MONITORING. EDUCATED PT ABOUT AFTER PLAN CARE AND COPY PROVIDED. RETURNED PERSONAL BELONGINGS TO PT. BOTH DR KENYON AND DR DONG DISCHARGED PT. HOLD DISCONTINUED BY DR KENYON. MEDICATIONS RECONCILED WITH DR KENYON AND DR DONG. REPORT GIVEN TO JAIRO SAMANIEGO AT [facility] FOR CONTINUITY OF CARE. PT SIGNED DISCHARGE PAPERWORK. PT REFUSED SKIN PICTURES AT THIS TIME. PT LEFT UNIT AT 1340 VIA AMBULANCE. Addendum: 10/05/22 at 1600 by GREGORIA THOMAS RN PT TO F/U WITH DR MOULTON AND DR LYNCH AT [facility].
== END 2022-10-05 15:44 | DRG 885 ==
LOC: ER 22:54 → TRANSITION 09-24 02:56 → GPS 09-24 08:50
PROVIDERS: ADMIT Psychiatry & Neurology Psychiatry; ATTEND Internal Medicine
DX: F25.0 Schizoaffective disorder, bipolar type (principal); N18.9 Chronic kidney disease, unspecified; F29 Unspecified psychosis not due to a substance or known physiological condition; Z20.822 Contact with and (suspected) exposure to COVID-19; G40.909 Epilepsy, unspecified, not intractable, without status epilepticus; I12.9 Hypertensive chronic kidney disease with stage 1 through stage 4 chronic kidney disease, or unspecified chronic kidney disease; F41.9 Anxiety disorder, unspecified; F32.A Depression, unspecified; R60.9 Edema, unspecified; L40.9 Psoriasis, unspecified; D64.9 Anemia, unspecified; Z88.0 Allergy status to penicillin; Z88.8 Allergy status to other drugs, medicaments and biological substances; Z88.6 Allergy status to analgesic agent; Z91.011 Allergy to milk products; Z73.6 Limitation of activities due to disability; D72.829 Elevated white blood cell count, unspecified; L30.9 Dermatitis, unspecified
CPT/HCPCS: 36415; 71045-TC; 80048-TC; 80053-TC; 80061-TC; 80076-TC; 82962-TC; 85025-TC; 97112-TC; 97116-TC; 97530-TC; C9803; G0480; J1200; J1630; Q0163

== ENCOUNTER 2023-05-08 01:48 | Inpatient (IN) | payer MEDICARE, OTHER ==
[~2023-05-08] VITALS: Ht 180.3 cm; Wt 59.0 kg
[~2023-05-08 01:48] MED LIST: ACET325T53 PO; BISA10SU11 RC; CETI-355 PO; CLON0.1T PO; DIPH25CA83 PO; FERR325T23 PO; GUAI100S9 PO; HALO5TAB PO; HYDR25TA4 PO; IBUP-1953 PO; LISI-768 PO; MAG30ORA PO; MAGN400O6 PO; MULT-134 PO; OXCA300T4 PO; SENN-175 PO; ZOLP5TAB2 PO
[2023-05-08 04:07] LABS: AMPHETAMINE, URINE NEGATIVE (NEGATIVE); BARBITURATE, URINE NEGATIVE (NEGATIVE); BENZODIAZEPINE, URINE NEGATIVE (NEGATIVE); CANNABINOID, URINE POSITIVE (NEGATIVE); COCCAINE, URINE NEGATIVE (NEGATIVE); OPIATE, URINE NEGATIVE (NEGATIVE); PHENCYCLIDINE SCREEN,URINE NEGATIVE (NEGATIVE)
[2023-05-08 04:12] LABS: APPEARANCE,URINE CLEAR (CLEAR); BILIRUBIN,URINE NEGATIVE (NEGATIVE); BLOOD, URINE TRACE-INTA Ery/uL (NEGATIVE); COLOR,URINE YELLOW (YELLOW); KETONES,URINE NEGATIVE (NEGATIVE); LEUKOCYTE ESTERASE ,URINE NEGATIVE (NEGATIVE); NITRITE, URINE NEGATIVE (NEGATIVE); PROTEIN,URINE NEGATIVE (NEGATIVE); UGLUCOSE NEGATIVE (NEGATIVE); UROBILINOGEN,URINE 0.2 EU/dL (0.2)
[2023-05-08 08:13] LABS: EOSINOPHILS # (AUTO) 0.4 K/uL (0.0-0.7); EOSINOPHILS % (AUTO) 9.5 % (0.0-6.0); HEMATOCRIT 41 % (33-45); HEMOGLOBIN 13.1 g/dL (11.5-14.8); LYMPHOCYTES % (AUTO) 24.7 % (20.0-44.0); MEAN CORPUSCULAR HEMOGLOBIN 28 PG (26.0-33.0); MEAN CORPUSCULAR HGB CONC 32 g/dl (31.0-36.0); MEAN CORPUSCULAR VOLUME 89 fL (82-100); MONOCYTES # (AUTO) 0.3 K/uL (0.1-1.30); MONOCYTES % (AUTO) 7.8 % (2.0-12.0); NEUTROPHILS # (AUTO) 2.3 K/uL (1.8-8.9); PLATELET COUNT (AUTO) 301 K/uL (150-450); RED BLOOD CELL COUNT(AUTO) 4.66 MIL/uL (4.0-5.2); WHITE BLOOD COUNT (AUTO) 4.1 K/uL (4.3-11.0)
[2023-05-08 08:18] LABS: CALCIUM, SERUM 9.9 mg/dL (8.5-10.1); CARBON DIOXIDE 27 mmol/L (21-32); CHLORIDE 98 mmol/L (98-107); CREATININE 0.7 mg/dL (0.6-1.3); GLUCOSE 85 mg/dL (74-106); SODIUM SERUM 131 mmol/L (136-145); UREA NITROGEN, BLOOD 17 mg/dL (7-18)
[2023-05-08 08:23] LABS: ALANINE AMINOTRANSFERASE 17 U/L (12-78); ALBUMIN 3.9 g/dL (3.4-5.0); ALKALINE PHOSPHATASE 113 U/L (46-116); ASPARTATE AMINOTRANSFERASE 20 U/L (15-37); BILIRUBIN,DIRECT 0.1 mg/dL (0.0-0.2); BILIRUBIN,TOTAL 0.3 mg/dL (0.2-1.0); SALICYLATE 4.8 mg/dL (2.8-20.0); TOTAL PROTEIN, SERUM 8.7 g/dL (6.4-8.2)
[2023-05-08 08:25] LABS: ACETAMINOPHEN <10 ug/ml (10-30); ALCOHOL, BLOOD < 3 mg/dL (0-10)
[2023-05-08] MEDS ORDERED: LISI-768 PO (08:57)
[2023-05-08] MEDS ORDERED: OLAN5TAB3 PO (08:57)
[2023-05-08] MEDS ORDERED: ACETAMINOPHEN 325 MG TABLET PO PRN (10:30)
[2023-05-08] MEDS ORDERED: BLOOD SUGAR DIAGNOSTIC 1 EACH STRIP IN ONE (10:30)
[2023-05-08] MEDS ORDERED: MAGNESIUM HYDROXIDE 30 ML UDC PO PRN (10:30)
[2023-05-08] MEDS ORDERED: MAG HYDROX/AL HYDROX/SIMETH 30 ML UDC PO PRN (10:30)
[2023-05-08] MEDS ORDERED: LORAZEPAM 0.5 MG TABLET PO PRN (10:30)
[2023-05-08 11:01] VITALS: BP 160/85; TEMP 98; O2SAT 100
[2023-05-08] MEDS: OXCARBAZEPINE 150 MG TABLET PO SCH ×2 (12:53→16:54)
[2023-05-08 16:00] VITALS: BP 188/100; TEMP 97.9; O2SAT 96
[2023-05-08 20:00] VITALS: BP 130/69; TEMP 97.9; O2SAT 99
[2023-05-08] MEDS: OLANZAPINE 10 MG TABLET PO SCH (21:49)
[2023-05-09 07:00] LABS: CALCIUM, SERUM 9.5 mg/dL (8.5-10.1); CREATININE 0.8 mg/dL (0.6-1.3); PHOSPHORUS 3.8 mg/dL (2.5-4.9)
[2023-05-09 07:02] LABS: THYROID STIMULATING HORMONE 1.109 uIU/mL (0.358-3.74); URIC ACID 5.5 mg/dL (2.6-7.2)
[2023-05-09 08:00] VITALS: BP 111/59; TEMP 98; O2SAT 97
[2023-05-09] MEDS: OXCARBAZEPINE 150 MG TABLET PO SCH ×2 (08:17→17:21)
[2023-05-09 16:00] VITALS: BP 114/70; TEMP 97.8; O2SAT 99
[2023-05-09 20:54] VITALS: BP 111/63; TEMP 98.2; O2SAT 96
[2023-05-09] MEDS: MUPIROCIN OINT 2% 22 GM TUBE TP SCH (21:00)
[2023-05-09] MEDS: OLANZAPINE 10 MG TABLET PO SCH (21:43)
[2023-05-09] MEDS ORDERED: MUPIROCIN OINT 2% 22 GM TUBE ONE (23:28)
[2023-05-10] MEDS: MUPIROCIN OINT 2% 22 GM TUBE TP SCH ×2 (00:15→08:37)
[2023-05-10 08:00] VITALS: BP 149/80; TEMP 97.8; O2SAT 98
[2023-05-10] MEDS: ENSURE ENLIVE 237 ML LIQUID (VANILLA) PO SCH (08:23)
[2023-05-10] MEDS: OXCARBAZEPINE 150 MG TABLET PO SCH ×2 (08:24→17:17)
[2023-05-10] MEDS ORDERED: MAG HYDROX/AL HYDROX/SIMETH 30 ML UDC PO PRN (08:30)
[2023-05-10] MEDS ORDERED: BISACODYL SUPP (10 MG) 10 MG/SUPP.RECT SUPP.RECT RC PRN (08:30)
[2023-05-10] MEDS ORDERED: diphenhydrAMINE HCL 25 MG CAPSULE PO PRN (08:30)
[2023-05-10] MEDS ORDERED: ACETAMINOPHEN 325 MG TABLET PO PRN (08:30)
[2023-05-10] MEDS ORDERED: CLONIDINE HCL 0.1 MG TABLET PO PRN (08:30)
[2023-05-10] MEDS ORDERED: MAGNESIUM HYDROXIDE 30 ML UDC PO PRN (08:30)
[2023-05-10] MEDS ORDERED: IBUPROFEN 400 MG TABLET PO PRN (08:30)
[2023-05-10] MEDS: FERROUS SULFATE (325 MG) 325 MG/TAB TABLET PO SCH (08:39)
[2023-05-10] MEDS: LISINOPRIL (5MG) 5 MG TABLET PO SCH (08:40)
[2023-05-10] MEDS: HYDROCHLOROTHIAZIDE 25 MG TABLET PO SCH (08:40)
[2023-05-10] MEDS: SENNOSIDES 8.6 MG TABLET PO SCH (08:41)
[2023-05-10] MEDS ORDERED: MUPIROCIN OINT 2% 22 GM TUBE NS SCH (11:10)
[2023-05-10 16:00] VITALS: BP 148/77; TEMP 97.8; O2SAT 99
[2023-05-10 21:07] VITALS: BP 126/64; TEMP 98.4; O2SAT 96
[2023-05-10] MEDS: OLANZAPINE 10 MG TABLET PO SCH (21:44)
[2023-05-10] MEDS: MUPIROCIN OINT 2% 22 GM TUBE NS SCH (21:44)
[2023-05-11 08:00] VITALS: BP 152/82; TEMP 97.8; O2SAT 97
[2023-05-11] MEDS: FERROUS SULFATE (325 MG) 325 MG/TAB TABLET PO SCH (09:33)
[2023-05-11] MEDS: OXCARBAZEPINE 150 MG TABLET PO SCH ×2 (09:33→17:13)
[2023-05-11] MEDS: LISINOPRIL (5MG) 5 MG TABLET PO SCH (09:33)
[2023-05-11] MEDS: SENNOSIDES 8.6 MG TABLET PO SCH (09:34)
[2023-05-11] MEDS: VITAMINS A AND D 56.7 GM TUBE TP SCH (09:34)
[2023-05-11] MEDS: ENSURE ENLIVE 237 ML LIQUID (VANILLA) PO SCH (09:34)
[2023-05-11] MEDS: HYDROCHLOROTHIAZIDE 25 MG TABLET PO SCH (09:34)
[2023-05-11] MEDS: MUPIROCIN OINT 2% 22 GM TUBE NS SCH ×2 (09:35→21:12)
[2023-05-11 16:00] VITALS: BP 144/90; TEMP 98.1; O2SAT 100
[2023-05-11 20:24] VITALS: BP 137/76; TEMP 98.4; O2SAT 99
[2023-05-11] MEDS: OLANZAPINE 10 MG TABLET PO SCH (21:11)
[2023-05-12 08:00] VITALS: BP 143/82; TEMP 98.7; O2SAT 98
[2023-05-12] MEDS: ENSURE ENLIVE 237 ML LIQUID (VANILLA) PO SCH (08:41)
[2023-05-12] MEDS: OXCARBAZEPINE 150 MG TABLET PO SCH ×3 (08:41→16:08)
[2023-05-12] MEDS: LISINOPRIL (5MG) 5 MG TABLET PO SCH (08:41)
[2023-05-12] MEDS: SENNOSIDES 8.6 MG TABLET PO SCH (08:41)
[2023-05-12] MEDS: HYDROCHLOROTHIAZIDE 25 MG TABLET PO SCH (08:41)
[2023-05-12] MEDS: FERROUS SULFATE (325 MG) 325 MG/TAB TABLET PO SCH (08:41)
[2023-05-12] MEDS: VITAMINS A AND D 56.7 GM TUBE TP SCH (08:43)
[2023-05-12] MEDS: MUPIROCIN OINT 2% 22 GM TUBE NS SCH ×2 (08:43→20:54)
[2023-05-12] MEDS: OLANZAPINE 5 MG TABLET PO SCH ×2 (13:40→16:08)
[2023-05-12 16:00] VITALS: BP 155/87; TEMP 98.1; O2SAT 100
[2023-05-12 20:00] VITALS: BP 161/65; TEMP 98.6; O2SAT 98
[2023-05-12] MEDS: OLANZAPINE 10 MG TABLET PO SCH (21:00)
[2023-05-12] MEDS ORDERED: GUAIFENESIN/D-METHORPHAN HB 5 ML UDC PO PRN (22:00)
[2023-05-13 05:00] VITALS: BP 145/76; O2SAT 98
[2023-05-13 08:00] VITALS: BP 129/77; TEMP 97.9; O2SAT 100
[2023-05-13] MEDS: SENNOSIDES 8.6 MG TABLET PO SCH (08:15)
[2023-05-13] MEDS: ENSURE ENLIVE 237 ML LIQUID (VANILLA) PO SCH (08:15)
[2023-05-13] MEDS: LISINOPRIL (5MG) 5 MG TABLET PO SCH (08:16)
[2023-05-13] MEDS: OLANZAPINE 5 MG TABLET PO SCH ×2 (08:16→16:06)
[2023-05-13] MEDS: OXCARBAZEPINE 150 MG TABLET PO SCH ×3 (08:16→16:06)
[2023-05-13] MEDS: VITAMINS A AND D 56.7 GM TUBE TP SCH (08:17)
[2023-05-13] MEDS: HYDROCHLOROTHIAZIDE 25 MG TABLET PO SCH (08:17)
[2023-05-13] MEDS: FERROUS SULFATE (325 MG) 325 MG/TAB TABLET PO SCH (08:17)
[2023-05-13] MEDS: MUPIROCIN OINT 2% 22 GM TUBE NS SCH ×2 (08:19→21:10)
[2023-05-13 16:00] VITALS: BP 122/57; TEMP 98.6; O2SAT 100
[2023-05-13 20:04] VITALS: BP 134/83; TEMP 98.2; O2SAT 98
[2023-05-13] MEDS: OLANZAPINE 10 MG TABLET PO SCH (21:09)
[2023-05-14 08:00] VITALS: BP 148/79; TEMP 97.6; O2SAT 97
[2023-05-14] MEDS: FERROUS SULFATE (325 MG) 325 MG/TAB TABLET PO SCH (08:31)
[2023-05-14] MEDS: OLANZAPINE 5 MG TABLET PO SCH ×3 (08:31→16:39)
[2023-05-14] MEDS: LISINOPRIL (5MG) 5 MG TABLET PO SCH (08:31)
[2023-05-14] MEDS: OXCARBAZEPINE 150 MG TABLET PO SCH ×3 (08:31→16:39)
[2023-05-14] MEDS: SENNOSIDES 8.6 MG TABLET PO SCH (08:31)
[2023-05-14] MEDS: HYDROCHLOROTHIAZIDE 25 MG TABLET PO SCH (08:32)
[2023-05-14] MEDS: ENSURE ENLIVE 237 ML LIQUID (VANILLA) PO SCH (08:32)
[2023-05-14] MEDS: MUPIROCIN OINT 2% 22 GM TUBE NS SCH ×2 (08:33→21:00)
[2023-05-14] MEDS: VITAMINS A AND D 56.7 GM TUBE TP SCH (08:37)
[2023-05-14 16:00] VITALS: BP 123/66; TEMP 98.6; O2SAT 97
[2023-05-14 20:00] VITALS: BP 142/73; TEMP 97.6; O2SAT 98
[2023-05-14] MEDS: OLANZAPINE 10 MG TABLET PO SCH (21:14)
[2023-05-15 08:00] VITALS: BP 160/71; TEMP 98.7; O2SAT 100
[2023-05-15] MEDS: SENNOSIDES 8.6 MG TABLET PO SCH (08:41)
[2023-05-15] MEDS: OXCARBAZEPINE 150 MG TABLET PO SCH ×3 (08:41→16:18)
[2023-05-15] MEDS: FERROUS SULFATE (325 MG) 325 MG/TAB TABLET PO SCH (08:41)
[2023-05-15] MEDS: HYDROCHLOROTHIAZIDE 25 MG TABLET PO SCH (08:41)
[2023-05-15] MEDS: OLANZAPINE 5 MG TABLET PO SCH ×3 (08:41→16:18)
[2023-05-15] MEDS: VITAMINS A AND D 56.7 GM TUBE TP SCH (08:42)
[2023-05-15] MEDS: LISINOPRIL (5MG) 5 MG TABLET PO SCH (08:42)
[2023-05-15] MEDS: MUPIROCIN OINT 2% 22 GM TUBE NS SCH ×2 (08:43→21:12)
[2023-05-15] MEDS: ENSURE ENLIVE 237 ML LIQUID (VANILLA) PO SCH (08:43)
[2023-05-15 16:00] VITALS: BP 149/83; TEMP 97.8; O2SAT 98
[2023-05-15 20:00] VITALS: BP 129/58; TEMP 98.3; O2SAT 97
[2023-05-15] MEDS: OLANZAPINE 10 MG TABLET PO SCH (21:12)
[2023-05-16 08:00] VITALS: BP 132/55; TEMP 98.8; O2SAT 100
[2023-05-16] MEDS: MUPIROCIN OINT 2% 22 GM TUBE NS SCH (08:14)
[2023-05-16] MEDS: ENSURE ENLIVE 237 ML LIQUID (VANILLA) PO SCH (08:14)
[2023-05-16] MEDS: FERROUS SULFATE (325 MG) 325 MG/TAB TABLET PO SCH (08:14)
[2023-05-16] MEDS: HYDROCHLOROTHIAZIDE 25 MG TABLET PO SCH (08:15)
[2023-05-16] MEDS: OLANZAPINE 5 MG TABLET PO SCH ×3 (08:15→17:52)
[2023-05-16] MEDS: LISINOPRIL (5MG) 5 MG TABLET PO SCH (08:15)
[2023-05-16] MEDS: OXCARBAZEPINE 150 MG TABLET PO SCH ×3 (08:15→17:51)
[2023-05-16] MEDS: SENNOSIDES 8.6 MG TABLET PO SCH (08:15)
[2023-05-16] MEDS: VITAMINS A AND D 56.7 GM TUBE TP SCH (08:16)
[2023-05-16 17:04] VITALS: BP 98/67; TEMP 98.1; O2SAT 97
[2023-05-16 20:00] VITALS: BP 160/75; TEMP 98.1; O2SAT 100
[2023-05-16] MEDS: OLANZAPINE 10 MG TABLET PO SCH (22:15)
[2023-05-17 08:00] VITALS: BP 162/74; TEMP 98.7; O2SAT 100
[2023-05-17] MEDS: ENSURE ENLIVE 237 ML LIQUID (VANILLA) PO SCH (08:44)
[2023-05-17] MEDS: OLANZAPINE 5 MG TABLET PO SCH ×3 (08:45→16:55)
[2023-05-17] MEDS: SENNOSIDES 8.6 MG TABLET PO SCH (08:45)
[2023-05-17] MEDS: OXCARBAZEPINE 150 MG TABLET PO SCH ×3 (08:45→16:55)
[2023-05-17] MEDS: FERROUS SULFATE (325 MG) 325 MG/TAB TABLET PO SCH (08:45)
[2023-05-17] MEDS: LISINOPRIL (5MG) 5 MG TABLET PO SCH (08:46)
[2023-05-17] MEDS: HYDROCHLOROTHIAZIDE 25 MG TABLET PO SCH (08:46)
[2023-05-17] MEDS: VITAMINS A AND D 56.7 GM TUBE TP SCH (08:47)
[2023-05-17 16:00] VITALS: BP 139/95; TEMP 98.6; O2SAT 100
[2023-05-17 20:47] VITALS: BP 129/64; TEMP 98.2; O2SAT 96
[2023-05-17 20:53] VITALS: BP 150/76; TEMP 98.6; O2SAT 100
[2023-05-17] MEDS: OLANZAPINE 10 MG TABLET PO SCH (21:08)
[2023-05-18 06:34] LABS: BASOPHILS % (AUTO) 1.3 % (0.0-2.0); EOSINOPHILS % (AUTO) 1.1 % (0.0-6.0); HEMATOCRIT 39 % (33-45); HEMOGLOBIN 13.5 g/dL (11.5-14.8); LYMPHOCYTES # (AUTO) 0.7 K/uL (0.8-4.8); LYMPHOCYTES % (AUTO) 17.9 % (20.0-44.0); MEAN CORPUSCULAR HEMOGLOBIN 29 PG (26.0-33.0); MEAN CORPUSCULAR HGB CONC 35 g/dl (31.0-36.0); MEAN CORPUSCULAR VOLUME 84 fL (82-100); MONOCYTES # (AUTO) 0.6 K/uL (0.1-1.30); MONOCYTES % (AUTO) 17.4 % (2.0-12.0); NEUTROPHILS # (AUTO) 2.3 K/uL (1.8-8.9); NEUTROPHILS % (AUTO) 62.3 % (43.0-81.0); PLATELET COUNT (AUTO) 428 K/uL (150-450); RED BLOOD CELL COUNT(AUTO) 4.68 MIL/uL (4.0-5.2); RED CELL DISTRIBUTION WIDTH 12.5 % (11.5-15.0); WHITE BLOOD COUNT (AUTO) 3.7 K/uL (4.3-11.0)
[2023-05-18 06:35] LABS: CALCIUM, SERUM 9.7 mg/dL (8.5-10.1); CREATININE 0.7 mg/dL (0.6-1.3); POTASSIUM 4.3 mmol/L (3.5-5.1)
[2023-05-18 08:00] VITALS: BP 169/83; TEMP 98.7; O2SAT 98
[2023-05-18 08:24] VITALS: BP 169/83
[2023-05-18] MEDS: OXCARBAZEPINE 150 MG TABLET PO SCH (08:24)
[2023-05-18] MEDS: SENNOSIDES 8.6 MG TABLET PO SCH (08:24)
[2023-05-18] MEDS: OLANZAPINE 5 MG TABLET PO SCH ×2 (08:24→12:57)
[2023-05-18] MEDS: FERROUS SULFATE (325 MG) 325 MG/TAB TABLET PO SCH (08:24)
[2023-05-18] MEDS: ENSURE ENLIVE 237 ML LIQUID (VANILLA) PO SCH (08:24)
[2023-05-18] MEDS: VITAMINS A AND D 56.7 GM TUBE TP SCH (08:25)
[2023-05-18] MEDS ORDERED: LISINOPRIL (5MG) 5 MG TABLET PO SCH (09:00)
[2023-05-18 11:06] LABS: CALCIUM, SERUM 9.5 mg/dL (8.5-10.1); CREATININE 0.7 mg/dL (0.6-1.3); POTASSIUM 4.6 mmol/L (3.5-5.1)
[2023-05-18] MEDS ORDERED: SODIUM CHLORIDE 1000 MG TABLET PO ONE (12:00)
[2023-05-18 12:41] LABS: ANISOCYTOSIS 1+; BASOPHILS % (MANUAL) 0 % (0.0-2.0); EOSINOPHILS % (MANUAL) 1 % (0-4); LYMPHOCYTES % (MANUAL) 15 % (16-48); MONOCYTES % (MANUAL) 16 % (0-11.0); NEUTROPHILS % (MANUAL) 68 (42-76); PLATELET ESTIMATE ADEQUATE
[2023-05-18] MEDS ORDERED: OXCARBAZEPINE 150 MG TABLET PO SCH (13:00)
[2023-05-18] MEDS ORDERED: LORA-258 PO (13:32)
[2023-05-18] MEDS ORDERED: OXCA150T5 PO (13:32)
[2023-05-18] MEDS ORDERED: OLAN5TAB3 PO (13:32)
[2023-05-18] MEDS ORDERED: LACT-246 PO (13:32)
[2023-05-18] MEDS ORDERED: OLAN10TA3 PO (13:32)
[2023-05-18] MEDS ORDERED: PETR113O TP (13:32)
[2023-05-18] MEDS ORDERED: GUAI5SYR PO (13:32)
== END 2023-05-18 13:46 | disposition short-term general hospital (02) | DRG 885 ==
LOC: ER 01:51 → GPS 09:16
PROVIDERS: ADMIT Psychiatry & Neurology Psychosomatic Medicine; ATTEND Internal Medicine
DX: F20.9 Schizophrenia, unspecified (principal); E87.1 Hypo-osmolality and hyponatremia; F41.9 Anxiety disorder, unspecified; G31.84 Mild cognitive impairment of uncertain or unknown etiology; I10 Essential (primary) hypertension; L40.9 Psoriasis, unspecified; D64.9 Anemia, unspecified; Z88.8 Allergy status to other drugs, medicaments and biological substances; Z88.0 Allergy status to penicillin; Z91.011 Allergy to milk products; Z79.899 Other long term (current) drug therapy; F32.A Depression, unspecified; Z73.6 Limitation of activities due to disability; R53.1 Weakness; R27.8 Other lack of coordination; Z91.81 History of falling; Z88.6 Allergy status to analgesic agent; G40.909 Epilepsy, unspecified, not intractable, without status epilepticus; F17.200 Nicotine dependence, unspecified, uncomplicated; E86.1 Hypovolemia; R77.9 Abnormality of plasma protein, unspecified; F29 Unspecified psychosis not due to a substance or known physiological condition; T50.2X5A Adverse effect of carbonic-anhydrase inhibitors, benzothiadiazides and other diuretics, initial encounter; Y92.9 Unspecified place or not applicable
CPT/HCPCS: 36415; 80048-TC; 80061-TC; 80076-TC; 83735-TC; 84100-TC; 84300-TC; 84443-TC; 84550-TC; 85025-TC; 87081-TC; 97112-TC; 97116-TC; 97530-TC; C9803; G0480

== ENCOUNTER 2023-05-18 13:06 | Inpatient (IN) | payer MEDICARE, OTHER ==
[~2023-05-18] VITALS: Ht 165.1 cm; Wt 58.1 kg
[~2023-05-18 13:06] MED LIST changes: -GUAI100S9 PO; -HALO5TAB PO; -OXCA300T4 PO; -ZOLP5TAB2 PO
[2023-05-18] MEDS ORDERED: OLAN5TAB3 PO (13:32)
[2023-05-18] MEDS ORDERED: LACT-246 PO (13:32)
[2023-05-18] MEDS ORDERED: LORA-258 PO (13:32)
[2023-05-18] MEDS ORDERED: GUAI5SYR PO (13:32)
[2023-05-18] MEDS ORDERED: OXCA150T5 PO (13:32)
[2023-05-18] MEDS ORDERED: PETR113O TP (13:32)
[2023-05-18] MEDS ORDERED: OLAN10TA3 PO (13:32)
[2023-05-18 16:00] VITALS: BP 160/86; TEMP 98.4; O2SAT 97
[2023-05-18] MEDS: IV NS 0.9% 1,000 ML IV SCH (19:12)
[2023-05-18] MEDS ORDERED: IV NS 0.9% 1,000 ML IV PRN (19:30)
[2023-05-18] MEDS ORDERED: BISACODYL SUPP (10 MG) 10 MG/SUPP.RECT SUPP.RECT RC PRN (19:30)
[2023-05-18] MEDS ORDERED: MAG HYDROX/AL HYDROX/SIMETH 30 ML UDC PO PRN ×2 (19:30)
[2023-05-18] MEDS ORDERED: ZOLPIDEM TARTRATE 5 MG TABLET PO PRN (19:30)
[2023-05-18] MEDS ORDERED: MAGNESIUM HYDROXIDE 30 ML UDC PO PRN ×2 (19:30)
[2023-05-18] MEDS ORDERED: GUAIFENESIN/D-METHORPHAN HB 5 ML UDC PO PRN (19:30)
[2023-05-18] MEDS ORDERED: HYDROCODONE/APAP 5/325MG TABLET PO PRN (19:30)
[2023-05-18] MEDS ORDERED: Z GUARD REMEDY 4 OZ OINT TP PRN (19:30)
[2023-05-18] MEDS ORDERED: ONDANSETRON HCL/PF 4 MG/2 ML VIAL IVP PRN (19:30)
[2023-05-18] MEDS ORDERED: ACETAMINOPHEN 325 MG TABLET PO PRN ×2 (19:30)
[2023-05-18] MEDS ORDERED: HYDROCODONE/APAP 10/325MG TABLET PO PRN (19:30)
[2023-05-18] MEDS ORDERED: CLONIDINE HCL 0.1 MG TABLET PO PRN (19:30)
[2023-05-18 20:00] VITALS: BP 180/76; TEMP 97.7
[2023-05-18 20:30] VITALS: BP 180/76; TEMP 97.7; O2SAT 99
[2023-05-18] MEDS: OLANZAPINE 10 MG TABLET PO SCH (21:12)
[2023-05-18] MEDS: LORAZEPAM 0.5 MG TABLET PO PRN (22:20)
[2023-05-19 00:55] VITALS: BP 150/90; TEMP 97.7
[2023-05-19 07:30] VITALS: BP 148/82; TEMP 97.7; O2SAT 100
[2023-05-19] MEDS: FERROUS SULFATE (325 MG) 325 MG/TAB TABLET PO SCH (08:44)
[2023-05-19] MEDS: PANTOPRAZOLE 40 MG TABLET.DR PO SCH (08:44)
[2023-05-19] MEDS: SENNOSIDES 8.6 MG TABLET PO SCH (08:44)
[2023-05-19] MEDS: VITAMINS A AND D 56.7 GM TUBE TP SCH (08:45)
[2023-05-19] MEDS: OLANZAPINE 5 MG TABLET PO SCH ×3 (08:45→16:50)
[2023-05-19] MEDS: LISINOPRIL (5MG) 5 MG TABLET PO SCH (08:45)
[2023-05-19] MEDS: ENSURE ENLIVE 237 ML LIQUID (VANILLA) PO SCH (08:46)
[2023-05-19] MEDS: IV NS 0.9% 1,000 ML IV SCH (08:48)
[2023-05-19 09:36] LABS: BASOPHILS % (AUTO) 0.8 % (0.0-2.0); EOSINOPHILS % (AUTO) 0.4 % (0.0-6.0); HEMATOCRIT 33 % (33-45); HEMOGLOBIN 11.3 g/dL (11.5-14.8); LYMPHOCYTES # (AUTO) 0.8 K/uL (0.8-4.8); LYMPHOCYTES % (AUTO) 13.8 % (20.0-44.0); MEAN CORPUSCULAR HEMOGLOBIN 28 PG (26.0-33.0); MEAN CORPUSCULAR HGB CONC 34 g/dl (31.0-36.0); MEAN CORPUSCULAR VOLUME 84 fL (82-100); MONOCYTES # (AUTO) 0.5 K/uL (0.1-1.30); MONOCYTES % (AUTO) 9.6 % (2.0-12.0); NEUTROPHILS # (AUTO) 4.2 K/uL (1.8-8.9); NEUTROPHILS % (AUTO) 75.4 % (43.0-81.0); PLATELET COUNT (AUTO) 379 K/uL (150-450); RED BLOOD CELL COUNT(AUTO) 3.98 MIL/uL (4.0-5.2); RED CELL DISTRIBUTION WIDTH 12.6 % (11.5-15.0); WHITE BLOOD COUNT (AUTO) 5.5 K/uL (4.3-11.0)
[2023-05-19 09:51] LABS: CREATININE 0.9 mg/dL (0.6-1.3); MAGNESIUM 1.7 mg/dL (1.8-2.4); POTASSIUM 4.3 mmol/L (3.5-5.1)
[2023-05-19] MEDS ORDERED: IV NS 0.9% 1,000 ML IV PRN (12:05)
[2023-05-19] MEDS ORDERED: Magnesium 1GM/D5W 100ML PREMIX 100 ML IV ONE (12:30)
[2023-05-19 16:00] VITALS: BP 116/58; TEMP 98.4; O2SAT 94
[2023-05-19 20:00] VITALS: BP 108/58; TEMP 98.6
[2023-05-19] MEDS: OLANZAPINE 10 MG TABLET PO SCH (21:12)
[2023-05-19 22:41] LABS: BASOPHILS # (AUTO) 0.1 K/uL (0.0-0.2); BASOPHILS % (AUTO) 1.4 % (0.0-2.0); EOSINOPHILS # (AUTO) 0.1 K/uL (0.0-0.7); EOSINOPHILS % (AUTO) 2.6 % (0.0-6.0); HEMATOCRIT 33 % (33-45); HEMOGLOBIN 10.9 g/dL (11.5-14.8); LYMPHOCYTES # (AUTO) 0.9 K/uL (0.8-4.8); LYMPHOCYTES % (AUTO) 21.8 % (20.0-44.0); MEAN CORPUSCULAR HEMOGLOBIN 29 PG (26.0-33.0); MEAN CORPUSCULAR HGB CONC 34 g/dl (31.0-36.0); MEAN CORPUSCULAR VOLUME 85 fL (82-100); MONOCYTES # (AUTO) 0.5 K/uL (0.1-1.30); MONOCYTES % (AUTO) 11.6 % (2.0-12.0); NEUTROPHILS # (AUTO) 2.7 K/uL (1.8-8.9); NEUTROPHILS % (AUTO) 62.6 % (43.0-81.0); PLATELET COUNT (AUTO) 357 K/uL (150-450); RED BLOOD CELL COUNT(AUTO) 3.81 MIL/uL (4.0-5.2); RED CELL DISTRIBUTION WIDTH 12.6 % (11.5-15.0); WHITE BLOOD COUNT (AUTO) 4.3 K/uL (4.3-11.0)
[2023-05-19 22:59] LABS: ALANINE AMINOTRANSFERASE 20 U/L (12-78); ALKALINE PHOSPHATASE 102 U/L (46-116); ASPARTATE AMINOTRANSFERASE 15 U/L (15-37); BILIRUBIN,TOTAL 0.1 mg/dL (0.2-1.0); CALCIUM, SERUM 8.9 mg/dL (8.5-10.1); CARBON DIOXIDE 25 mmol/L (21-32); CHLORIDE 91 mmol/L (98-107); CREATININE 1.1 mg/dL (0.6-1.3); GLUCOSE 118 mg/dL (74-106); MAGNESIUM 2.1 mg/dL (1.8-2.4); PHOSPHORUS 3.5 mg/dL (2.5-4.9); POTASSIUM 4.6 mmol/L (3.5-5.1); SODIUM SERUM 123 mmol/L (136-145); TOTAL PROTEIN, SERUM 6.7 g/dL (6.4-8.2); UREA NITROGEN, BLOOD 23 mg/dL (7-18)
[2023-05-20] MEDS: IV NS 0.9% 1,000 ML IV SCH (06:31)
[2023-05-20 07:02] LABS: CALCIUM, SERUM 8.9 mg/dL (8.5-10.1); CREATININE 0.9 mg/dL (0.6-1.3); POTASSIUM 4.4 mmol/L (3.5-5.1)
[2023-05-20 07:12] LABS: THYROID STIMULATING HORMONE 1.291 uIU/mL (0.358-3.74); URIC ACID 5.1 mg/dL (2.6-7.2)
[2023-05-20 07:30] VITALS: BP 141/61; TEMP 97.5; O2SAT 100
[2023-05-20] MEDS: PANTOPRAZOLE 40 MG TABLET.DR PO SCH (08:03)
[2023-05-20] MEDS: ENSURE ENLIVE 237 ML LIQUID (VANILLA) PO SCH (08:57)
[2023-05-20] MEDS: SENNOSIDES 8.6 MG TABLET PO SCH (08:58)
[2023-05-20] MEDS: FERROUS SULFATE (325 MG) 325 MG/TAB TABLET PO SCH (08:58)
[2023-05-20] MEDS: LISINOPRIL (5MG) 5 MG TABLET PO SCH (08:58)
[2023-05-20] MEDS: OLANZAPINE 5 MG TABLET PO SCH ×3 (08:59→16:42)
[2023-05-20] MEDS: VITAMINS A AND D 56.7 GM TUBE TP SCH (09:00)
[2023-05-20 12:00] VITALS: BP 129/62; TEMP 98.7; O2SAT 100
[2023-05-20 14:41] LABS: CREATININE 0.8 mg/dL (0.6-1.3); POTASSIUM 4.4 mmol/L (3.5-5.1)
[2023-05-20 14:45] LABS: THYROID STIMULATING HORMONE 1.158 uIU/mL (0.358-3.74); URIC ACID 4.9 mg/dL (2.6-7.2)
[2023-05-20 16:00] VITALS: BP 94/51; TEMP 98.8; O2SAT 100
[2023-05-20] MEDS: diphenhydrAMINE HCL 25 MG CAPSULE PO PRN (16:48)
[2023-05-20 20:00] VITALS: BP 116/53; TEMP 98.6; O2SAT 98
[2023-05-20] MEDS: OLANZAPINE 10 MG TABLET PO SCH (21:13)
[2023-05-21] VITALS: BP 148/70; TEMP 98.1; O2SAT 96
[2023-05-21 04:00] VITALS: BP 135/56; TEMP 98.2; O2SAT 98
[2023-05-21] MEDS: IV NS 0.9% 1,000 ML IV SCH (05:56)
[2023-05-21 07:12] LABS: CALCIUM, SERUM 9.2 mg/dL (8.5-10.1); CREATININE 0.8 mg/dL (0.6-1.3); POTASSIUM 4.7 mmol/L (3.5-5.1)
[2023-05-21 08:00] VITALS: BP 178/79; TEMP 98.1; O2SAT 100
[2023-05-21] MEDS: PANTOPRAZOLE 40 MG TABLET.DR PO SCH (08:18)
[2023-05-21] MEDS: SENNOSIDES 8.6 MG TABLET PO SCH (08:18)
[2023-05-21] MEDS: OLANZAPINE 5 MG TABLET PO SCH ×2 (08:18→12:47)
[2023-05-21] MEDS: FERROUS SULFATE (325 MG) 325 MG/TAB TABLET PO SCH (08:19)
[2023-05-21] MEDS: LISINOPRIL (5MG) 5 MG TABLET PO SCH (08:45)
[2023-05-21] MEDS: diphenhydrAMINE HCL 25 MG CAPSULE PO PRN (08:48)
[2023-05-21] MEDS: ENSURE ENLIVE 237 ML LIQUID (VANILLA) PO SCH (08:48)
[2023-05-21] MEDS: VITAMINS A AND D 56.7 GM TUBE TP SCH (10:37)
[2023-05-21 16:00] VITALS: BP 183/71; TEMP 98.6; O2SAT 100
[2023-05-21] MEDS: LORAZEPAM 0.5 MG TABLET PO PRN (16:28)
== END 2023-05-21 17:03 | DRG 641 ==
LOC: MED 13:06 → TELE 17:51
PROVIDERS: ADMIT Nurse Practitioner Acute Care; ATTEND Nurse Practitioner Acute Care
PROC: 05HB33Z Insertion of Infusion Device into Right Basilic Vein, Percutaneous Approach (ICD-10-PCS; principal; 2023-05-20)
DX: E87.1 Hypo-osmolality and hyponatremia (principal); E86.9 Volume depletion, unspecified; I10 Essential (primary) hypertension; G40.909 Epilepsy, unspecified, not intractable, without status epilepticus; M19.90 Unspecified osteoarthritis, unspecified site; F41.9 Anxiety disorder, unspecified; F29 Unspecified psychosis not due to a substance or known physiological condition; F17.200 Nicotine dependence, unspecified, uncomplicated; Z79.899 Other long term (current) drug therapy; Z88.8 Allergy status to other drugs, medicaments and biological substances; Z88.6 Allergy status to analgesic agent; Z91.011 Allergy to milk products; F32.9 Major depressive disorder, single episode, unspecified; G31.84 Mild cognitive impairment of uncertain or unknown etiology; T50.2X5A Adverse effect of carbonic-anhydrase inhibitors, benzothiadiazides and other diuretics, initial encounter; Y92.9 Unspecified place or not applicable; L40.9 Psoriasis, unspecified; Z88.0 Allergy status to penicillin; F25.9 Schizoaffective disorder, unspecified
CPT/HCPCS: 36410; 36415; 71045-TC; 80048-TC; 80053-TC; 82533; 83735-TC; 84100-TC; 84443-TC; 84550-TC; 85025-TC; G0378; J3475; J7030; Q0163

== ENCOUNTER 2024-04-26 20:51 | Inpatient (IN) | payer MEDICARE, OTHER ==
[~2024-04-26] VITALS: Ht 160 cm; Wt 64.9 kg
[~2024-04-26 20:51] MED LIST changes: -CETI-355 PO; +GUAI5SYR PO; -HYDR25TA4 PO; +LACT-246 PO; +LORA-258 PO; -MULT-134 PO; +OLAN10TA3 PO; +OLAN5TAB3 PO; +PETR113O TP
[2024-04-26 21:51] LABS: BASOPHILS # (AUTO) 0.1 K/uL (0.0-0.2); BASOPHILS % (AUTO) 1.2 % (0.0-2.0); EOSINOPHILS # (AUTO) 0.4 K/uL (0.0-0.7); EOSINOPHILS % (AUTO) 7.3 % (0.0-6.0); HEMATOCRIT 36 % (33-45); HEMOGLOBIN 12.1 g/dL (11.5-14.8); LYMPHOCYTES # (AUTO) 1.2 K/uL (0.8-4.8); LYMPHOCYTES % (AUTO) 22.8 % (20.0-44.0); MEAN CORPUSCULAR HEMOGLOBIN 28 PG (26.0-33.0); MEAN CORPUSCULAR HGB CONC 33 g/dl (31.0-36.0); MEAN CORPUSCULAR VOLUME 85 fL (82-100); MONOCYTES # (AUTO) 0.5 K/uL (0.1-1.30); MONOCYTES % (AUTO) 8.7 % (2.0-12.0); NEUTROPHILS # (AUTO) 3.1 K/uL (1.8-8.9); PLATELET COUNT (AUTO) 439 K/uL (150-450); RED BLOOD CELL COUNT(AUTO) 4.25 MIL/uL (4.0-5.2); RED CELL DISTRIBUTION WIDTH 12.6 % (11.5-15.0); WHITE BLOOD COUNT (AUTO) 5.2 K/uL (4.3-11.0)
[2024-04-26 21:56] LABS: APPEARANCE,URINE CLEAR (CLEAR); BILIRUBIN,URINE NEGATIVE (NEGATIVE); BLOOD, URINE NEGATIVE Ery/uL (NEGATIVE); KETONES,URINE NEGATIVE (NEGATIVE); LEUKOCYTE ESTERASE ,URINE TRACE (NEGATIVE); NITRITE, URINE NEGATIVE (NEGATIVE); PROTEIN,URINE NEGATIVE (NEGATIVE); UGLUCOSE NEGATIVE (NEGATIVE); UROBILINOGEN,URINE 0.2 EU/dL (0.2)
[2024-04-26 21:58] LABS: CALCIUM, SERUM 9.8 mg/dL (8.5-10.1); CARBON DIOXIDE 29 mmol/L (21-32); CHLORIDE 93 mmol/L (98-107); CREATININE 0.7 mg/dL (0.6-1.3); GLUCOSE 89 mg/dL (74-106); POTASSIUM 4.3 mmol/L (3.5-5.1); SODIUM SERUM 128 mmol/L (136-145); UREA NITROGEN, BLOOD 15 mg/dL (7-18)
[2024-04-26 22:01] LABS: COLOR,URINE LIGHT YELLOW (YELLOW)
[2024-04-26 22:02] LABS: ADD URINE CULTURE YES; BACTERIA,URINE 1+ /HPF (None Seen); MUCUS,URINE Few /LPF (None Seen); RBC,URINE 0-2 /HPF (0-2)
[2024-04-26 22:05] LABS: ALANINE AMINOTRANSFERASE 23 U/L (12-78); ALBUMIN 3.5 g/dL (3.4-5.0); ALKALINE PHOSPHATASE 143 U/L (46-116); ASPARTATE AMINOTRANSFERASE 21 U/L (15-37); BILIRUBIN,DIRECT 0.1 mg/dL (0.0-0.2); BILIRUBIN,TOTAL 0.2 mg/dL (0.2-1.0)
[2024-04-26 22:16] LABS: AMPHETAMINE, URINE NEGATIVE (NEGATIVE); BARBITURATE, URINE NEGATIVE (NEGATIVE); BENZODIAZEPINE, URINE NEGATIVE (NEGATIVE); CANNABINOID, URINE NEGATIVE (NEGATIVE); COCCAINE, URINE NEGATIVE (NEGATIVE); OPIATE, URINE NEGATIVE (NEGATIVE); PHENCYCLIDINE SCREEN,URINE NEGATIVE (NEGATIVE)
[2024-04-26 22:26] LABS: ACETAMINOPHEN <10 ug/ml (10-30); ALCOHOL, BLOOD < 3 mg/dL (0-10); SALICYLATE 1.7 mg/dL (2.8-20.0)
[2024-04-27] MEDS ORDERED: NITROFURANTOIN/MONOHYDRATE MACROCRYSTALS 100 MG CAPSULE ONE (00:53)
[2024-04-27] MEDS: NITROFURANTOIN/MONOHYDRATE MACROCRYSTALS 100 MG CAPSULE PO ONE (00:58)
[2024-04-27 04:10] VITALS: BP 128/72; TEMP 98.2; O2SAT 98
[2024-04-27] MEDS ORDERED: ACETAMINOPHEN 325 MG TABLET PO PRN (04:30)
[2024-04-27] MEDS ORDERED: MAGNESIUM HYDROXIDE 30 ML UDC PO PRN (04:30)
[2024-04-27] MEDS: BLOOD SUGAR DIAGNOSTIC 1 EACH STRIP IN ONE (05:00)
[2024-04-27] MEDS ORDERED: OLAN7.5T3 PO (07:56)
[2024-04-27] MEDS ORDERED: DICL100G26 TP (07:56)
[2024-04-27] MEDS ORDERED: AMLO10TA4 PO (07:56)
[2024-04-27] MEDS ORDERED: LORA10TA7 PO (07:56)
[2024-04-27] MEDS ORDERED: OXCA300T15 PO (07:56)
[2024-04-27] MEDS ORDERED: ACET-2030 PO (07:56)
[2024-04-27] MEDS ORDERED: MECL-159 PO (07:56)
[2024-04-27] MEDS ORDERED: NA P133E RC (07:56)
[2024-04-27] MEDS ORDERED: TRIA80CR12 TP (07:56)
[2024-04-27 08:00] VITALS: BP 119/67; TEMP 97.9; O2SAT 100
[2024-04-27] MEDS: ZIPRASIDONE MESYLATE 20 MG/VIAL VIAL IM ONE (08:30)
[2024-04-27] MEDS ORDERED: MECLIZINE HCL 25 MG TABLET PO PRN (11:30)
[2024-04-27] MEDS ORDERED: NITROFURANTOIN MACROCRYSTAL 50 MG CAPSULE PO SCH (11:30)
[2024-04-27] MEDS: MAGNESIUM HYDROXIDE 30 ML UDC PO PRN (15:30)
[2024-04-27 16:00] VITALS: BP 129/71; TEMP 97.6; O2SAT 98
[2024-04-27] MEDS: risperiDONE-M 0.5 MG TAB.RAPDIS PO SCH (16:56)
[2024-04-27] MEDS: NITROFURANTOIN MACROCRYSTAL 100 MG CAPSULE PO SCH (16:57)
[2024-04-27 20:00] VITALS: BP 144/75; TEMP 97.8; O2SAT 97
[2024-04-28 07:49] LABS: CREATININE 1.1 mg/dL (0.6-1.3)
[2024-04-28 08:00] VITALS: BP 149/78; TEMP 97.9; O2SAT 96
[2024-04-28 08:15] LABS: CARBON DIOXIDE 24 mmol/L (21-32); CHLORIDE 91 mmol/L (98-107); GLUCOSE 107 mg/dL (74-106); POTASSIUM 4.5 mmol/L (3.5-5.1); SODIUM SERUM 125 mmol/L (136-145); UREA NITROGEN, BLOOD 25 mg/dL (7-18)
[2024-04-28 08:19] LABS: ALANINE AMINOTRANSFERASE 17 U/L (12-78); ALBUMIN 3.5 g/dL (3.4-5.0); ALKALINE PHOSPHATASE 143 U/L (46-116); ASPARTATE AMINOTRANSFERASE 14 U/L (15-37); BILIRUBIN,TOTAL 0.3 mg/dL (0.2-1.0); TOTAL PROTEIN, SERUM 7.8 g/dL (6.4-8.2)
[2024-04-28 08:43] LABS: CHOLESTEROL 201 mg/dL (<200); HDL CHOLESTEROL 71 mg/dL (40-60); LDL 108 mg/dL (0-99); TRIGLYCERIDES 56 mg/dL (30-150)
[2024-04-28] MEDS: LORATADINE 10 MG TABLET PO SCH (09:27)
[2024-04-28] MEDS: LISINOPRIL (5MG) 5 MG TABLET PO SCH (09:28)
[2024-04-28] MEDS: AMLODIPINE BESYLATE 10 MG TABLET PO SCH (09:28)
[2024-04-28] MEDS: VITAMINS A AND D 56.7 GM TUBE TP SCH (09:30)
[2024-04-28] MEDS: VITAMINS A AND D 56.7 GM TUBE TP PRN (09:43)
[2024-04-28 16:00] VITALS: BP 151/81; TEMP 98.9; O2SAT 100
[2024-04-28 20:00] VITALS: BP 140/82; TEMP 98.6; O2SAT 100
[2024-04-29 07:48] LABS: ALANINE AMINOTRANSFERASE 14 U/L (12-78); ALBUMIN 3.1 g/dL (3.4-5.0); ALKALINE PHOSPHATASE 133 U/L (46-116); ASPARTATE AMINOTRANSFERASE 9 U/L (15-37); BILIRUBIN,TOTAL 0.3 mg/dL (0.2-1.0); CALCIUM, SERUM 9.4 mg/dL (8.5-10.1); CARBON DIOXIDE 28 mmol/L (21-32); CHLORIDE 98 mmol/L (98-107); GLUCOSE 103 mg/dL (74-106); MAGNESIUM 2.4 mg/dL (1.8-2.4); PHOSPHORUS 4.1 mg/dL (2.5-4.9); POTASSIUM 5.3 mmol/L (3.5-5.1); SODIUM SERUM 132 mmol/L (136-145); TOTAL PROTEIN, SERUM 7.1 g/dL (6.4-8.2); UREA NITROGEN, BLOOD 21 mg/dL (7-18)
[2024-04-29 08:00] VITALS: BP 141/78; TEMP 97.8; O2SAT 98
[2024-04-29] MEDS: risperiDONE-M 0.5 MG TAB.RAPDIS PO SCH (08:17)
[2024-04-29 09:47] LABS: URIC ACID 6.3 mg/dL (2.6-7.2)
[2024-04-29] MEDS: SODIUM POLYSTYRENE SULFONATE 15 G/60 ML BOTTLE PO ONE (13:34)
[2024-04-29 16:00] VITALS: BP 119/60; TEMP 98; O2SAT 100
[2024-04-29 20:31] VITALS: BP 127/74; TEMP 98; O2SAT 100
[2024-04-30 08:00] VITALS: BP 125/71; TEMP 97.8; O2SAT 96
[2024-04-30 13:34] LABS: BASOPHILS # (AUTO) 0.1 K/uL (0.0-0.2); EOSINOPHILS # (AUTO) 0.3 K/uL (0.0-0.7); EOSINOPHILS % (AUTO) 6.4 % (0.0-6.0); HEMATOCRIT 35 % (33-45); HEMOGLOBIN 11.5 g/dL (11.5-14.8); LYMPHOCYTES % (AUTO) 19.6 % (20.0-44.0); MEAN CORPUSCULAR HEMOGLOBIN 28 PG (26.0-33.0); MEAN CORPUSCULAR HGB CONC 33 g/dl (31.0-36.0); MEAN CORPUSCULAR VOLUME 86 fL (82-100); MONOCYTES # (AUTO) 0.6 K/uL (0.1-1.30); PLATELET COUNT (AUTO) 497 K/uL (150-450); RED BLOOD CELL COUNT(AUTO) 4.07 MIL/uL (4.0-5.2); RED CELL DISTRIBUTION WIDTH 12.4 % (11.5-15.0)
[2024-04-30 13:40] LABS: ALANINE AMINOTRANSFERASE 17 U/L (12-78); ALBUMIN 3.4 g/dL (3.4-5.0); ALKALINE PHOSPHATASE 139 U/L (46-116); ASPARTATE AMINOTRANSFERASE 12 U/L (15-37); BILIRUBIN,TOTAL 0.3 mg/dL (0.2-1.0); CALCIUM, SERUM 9.6 mg/dL (8.5-10.1); CARBON DIOXIDE 28 mmol/L (21-32); CHLORIDE 94 mmol/L (98-107); CREATININE 0.9 mg/dL (0.6-1.3); GLUCOSE 122 mg/dL (74-106); MAGNESIUM 2.1 mg/dL (1.8-2.4); PHOSPHORUS 3.7 mg/dL (2.5-4.9); POTASSIUM 3.6 mmol/L (3.5-5.1); SODIUM SERUM 130 mmol/L (136-145); TOTAL PROTEIN, SERUM 7.7 g/dL (6.4-8.2); UREA NITROGEN, BLOOD 16 mg/dL (7-18)
[2024-04-30 16:08] VITALS: BP 153/90; TEMP 97.7; O2SAT 99
[2024-04-30 21:01] VITALS: BP 124/74; TEMP 98; O2SAT 98
[2024-05-01 08:00] VITALS: BP 155/83; TEMP 97.7; O2SAT 97
[2024-05-01 08:14] LABS: ALANINE AMINOTRANSFERASE 12 U/L (12-78); ALBUMIN 3.3 g/dL (3.4-5.0); ALKALINE PHOSPHATASE 136 U/L (46-116); ASPARTATE AMINOTRANSFERASE 13 U/L (15-37); BILIRUBIN,TOTAL 0.3 mg/dL (0.2-1.0); CALCIUM, SERUM 9.5 mg/dL (8.5-10.1); CARBON DIOXIDE 27 mmol/L (21-32); CHLORIDE 97 mmol/L (98-107); CREATININE 0.6 mg/dL (0.6-1.3); GLUCOSE 105 mg/dL (74-106); MAGNESIUM 1.9 mg/dL (1.8-2.4); PHOSPHORUS 3.6 mg/dL (2.5-4.9); POTASSIUM 3.7 mmol/L (3.5-5.1); SODIUM SERUM 131 mmol/L (136-145); TOTAL PROTEIN, SERUM 7.5 g/dL (6.4-8.2); UREA NITROGEN, BLOOD 12 mg/dL (7-18)
[2024-05-01] MEDS: AMLODIPINE BESYLATE 5 MG TABLET PO SCH (12:24)
[2024-05-01 16:00] VITALS: BP 106/66; TEMP 97.7; O2SAT 99
[2024-05-01] MEDS: risperiDONE-M 0.5 MG TAB.RAPDIS PO SCH (16:55)
[2024-05-01 20:31] VITALS: BP 148/78; TEMP 97.9; O2SAT 97
[2024-05-02 07:46] LABS: CALCIUM, SERUM 9.8 mg/dL (8.5-10.1); CARBON DIOXIDE 27 mmol/L (21-32); CHLORIDE 99 mmol/L (98-107); CREATININE 0.7 mg/dL (0.6-1.3); GLUCOSE 93 mg/dL (74-106); POTASSIUM 4.2 mmol/L (3.5-5.1); SODIUM SERUM 134 mmol/L (136-145); UREA NITROGEN, BLOOD 12 mg/dL (7-18)
[2024-05-02 08:00] VITALS: BP 138/81; TEMP 97.8; O2SAT 97
[2024-05-02 16:21] VITALS: BP 167/82; TEMP 97.9; O2SAT 98
[2024-05-02 20:25] VITALS: BP 124/65; TEMP 98.4; O2SAT 97
[2024-05-02] MEDS: risperiDONE-M 0.5 MG TAB.RAPDIS PO SCH (20:34)
[2024-05-03 07:44] LABS: CALCIUM, SERUM 8.9 mg/dL (8.5-10.1); CARBON DIOXIDE 24 mmol/L (21-32); CHLORIDE 102 mmol/L (98-107); CREATININE 0.8 mg/dL (0.6-1.3); GLUCOSE 98 mg/dL (74-106); POTASSIUM 4.6 mmol/L (3.5-5.1); SODIUM SERUM 136 mmol/L (136-145); UREA NITROGEN, BLOOD 16 mg/dL (7-18)
[2024-05-03 08:00] VITALS: BP 124/101; TEMP 97.8; O2SAT 96
[2024-05-03] MEDS: risperiDONE-M 0.5 MG TAB.RAPDIS PO SCH (08:18)
[2024-05-03 16:17] VITALS: BP 145/83; TEMP 98; O2SAT 95
[2024-05-03] MEDS: OXCARBAZEPINE 150 MG TABLET PO SCH (17:18)
[2024-05-03 20:00] VITALS: BP 129/83; TEMP 98.1; O2SAT 100
[2024-05-04 07:30] VITALS: BP 134/78; TEMP 97.3; O2SAT 100
[2024-05-04 08:03] LABS: CALCIUM, SERUM 9.8 mg/dL (8.5-10.1); CARBON DIOXIDE 24 mmol/L (21-32); CHLORIDE 102 mmol/L (98-107); CREATININE 0.7 mg/dL (0.6-1.3); GLUCOSE 113 mg/dL (74-106); POTASSIUM 4.6 mmol/L (3.5-5.1); SODIUM SERUM 135 mmol/L (136-145); UREA NITROGEN, BLOOD 17 mg/dL (7-18)
[2024-05-04 15:30] VITALS: BP 130/76; TEMP 97.3; O2SAT 100
[2024-05-04 20:00] VITALS: BP 132/71; TEMP 98.1; O2SAT 100
[2024-05-05 08:07] VITALS: BP 123/62; TEMP 98; O2SAT 98
[2024-05-05 16:30] VITALS: BP 159/80; TEMP 97.7; O2SAT 100
[2024-05-05 20:00] VITALS: BP 135/73; TEMP 98.6; O2SAT 97
[2024-05-06 07:57] LABS: CALCIUM, SERUM 9.1 mg/dL (8.5-10.1); CARBON DIOXIDE 23 mmol/L (21-32); CHLORIDE 103 mmol/L (98-107); CREATININE 0.7 mg/dL (0.6-1.3); GLUCOSE 101 mg/dL (74-106); POTASSIUM 4.2 mmol/L (3.5-5.1); SODIUM SERUM 137 mmol/L (136-145); UREA NITROGEN, BLOOD 16 mg/dL (7-18)
[2024-05-06 08:13] VITALS: BP 144/66; TEMP 98; O2SAT 98
[2024-05-06 15:43] VITALS: BP 134/83; TEMP 97.7; O2SAT 96
[2024-05-06] MEDS: OXCARBAZEPINE 150 MG TABLET PO SCH (16:26)
[2024-05-06 20:35] VITALS: BP 130/66; TEMP 97.9; O2SAT 98
[2024-05-07 07:00] VITALS: BP 136/76; TEMP 97.5; O2SAT 98
[2024-05-07 16:00] VITALS: BP 136/82; TEMP 97.7; O2SAT 100
[2024-05-07 20:08] VITALS: BP 118/59; TEMP 98; O2SAT 99
[2024-05-08 08:00] VITALS: BP 93/76; TEMP 97.8; O2SAT 98
[2024-05-08] MEDS: risperiDONE-M 0.5 MG TAB.RAPDIS PO SCH (08:21)
[2024-05-08 16:12] VITALS: BP 138/64; TEMP 98; O2SAT 99
[2024-05-08 20:59] VITALS: BP 117/51; TEMP 98.3; O2SAT 98
[2024-05-09 08:00] VITALS: BP 123/73; TEMP 97.9; O2SAT 99
[2024-05-09 16:00] VITALS: BP 126/81; TEMP 98; O2SAT 100
[2024-05-09 20:26] VITALS: BP 133/68; TEMP 98.8; O2SAT 99
[2024-05-10 08:00] VITALS: BP 153/91; TEMP 97.8; O2SAT 100
[2024-05-10 16:00] VITALS: BP 117/59; TEMP 98.4; O2SAT 98
[2024-05-10] MEDS: BENZTROPINE MESYLATE (1 MG) 1 MG TABLET PO SCH (17:09)
[2024-05-10 20:00] VITALS: BP 119/68; TEMP 98.6; O2SAT 100
[2024-05-10] MEDS: RISPERIDONE 1 MG TAB.RAPDIS PO SCH (20:17)
[2024-05-11 08:40] VITALS: BP 125/73; TEMP 97.8; O2SAT 98
[2024-05-11] MEDS: RISPERIDONE 1 MG TAB.RAPDIS PO SCH (08:42)
[2024-05-11 16:30] VITALS: BP 139/78; TEMP 98; O2SAT 100
[2024-05-11 20:00] VITALS: BP 148/68; TEMP 98.1; O2SAT 97
[2024-05-12 08:00] VITALS: BP 141/65; TEMP 97.7; O2SAT 100
[2024-05-12 16:00] VITALS: BP 154/80; TEMP 97.3; O2SAT 100
[2024-05-12 20:00] VITALS: BP 132/73; TEMP 98.2; O2SAT 98
[2024-05-12 20:25] VITALS: BP 132/73; TEMP 98.2; O2SAT 98
[2024-05-13 08:00] VITALS: BP 152/72; TEMP 98.1; O2SAT 100
[2024-05-13 21:27] VITALS: BP 110/58; TEMP 98.2; O2SAT 96
[2024-05-14 08:00] VITALS: BP 128/77; TEMP 98; O2SAT 98
[2024-05-14] MEDS: RISPERIDONE 1 MG TAB.RAPDIS PO SCH (08:33)
[2024-05-14 16:00] VITALS: BP 113/72; TEMP 98; O2SAT 100
[2024-05-14 20:29] VITALS: TEMP 98; O2SAT 98
[2024-05-15 08:00] VITALS: BP 152/81; TEMP 98.6; O2SAT 98
[2024-05-15 16:00] VITALS: BP 148/79; TEMP 98.6; O2SAT 100
[2024-05-15 20:52] VITALS: BP 118/57; TEMP 98.3; O2SAT 99
[2024-05-16 08:00] VITALS: BP 150/98; TEMP 98; O2SAT 100
[2024-05-16 16:00] VITALS: BP 186/82; TEMP 97.8; O2SAT 100
[2024-05-16 20:22] VITALS: BP 110/71; TEMP 98.6; O2SAT 96
[2024-05-17 08:00] VITALS: BP 146/67; TEMP 97.2; O2SAT 98
[2024-05-17] MEDS: OXCARBAZEPINE 150 MG TABLET PO SCH (14:00)
[2024-05-17 16:00] VITALS: BP 150/83; TEMP 98.4; O2SAT 98
[2024-05-17 20:00] VITALS: BP 121/55; TEMP 98.1; O2SAT 100
[2024-05-17] MEDS ORDERED: GUAIFENESIN 300 MG/15 ML UDC PO PRN (20:00)
[2024-05-17] MEDS: GUAIFENESIN 300 MG/15 ML UDC PO PRN (20:24)
[2024-05-18 08:00] VITALS: BP 119/60; TEMP 98; O2SAT 96
[2024-05-18 20:00] VITALS: BP 104/57; TEMP 97.9; O2SAT 100
[2024-05-19 08:00] VITALS: BP 147/88; TEMP 98.6; O2SAT 99
[2024-05-19 16:34] VITALS: BP 134/65; TEMP 98; O2SAT 98
[2024-05-19 20:00] VITALS: BP 102/53; TEMP 98.4; O2SAT 99
[2024-05-20 08:00] VITALS: BP 183/81; TEMP 97.8; O2SAT 100
[2024-05-20] MEDS: MAG HYDROX/AL HYDROX/SIMETH 30 ML UDC PO PRN (13:10)
[2024-05-20 16:00] VITALS: BP 131/54; TEMP 97.9; O2SAT 98
[2024-05-20 20:23] VITALS: BP 126/52; TEMP 98.2; O2SAT 100
[2024-05-21 08:00] VITALS: BP 150/71; TEMP 97.7; O2SAT 100
[2024-05-21 16:00] VITALS: BP 148/78; TEMP 97.9; O2SAT 100
[2024-05-21 21:01] VITALS: BP 126/74; TEMP 97.9; O2SAT 98
[2024-05-22 08:00] VITALS: BP 139/78; TEMP 97.7; O2SAT 98
[2024-05-22 16:00] VITALS: BP 123/63; TEMP 97.8; O2SAT 96
[2024-05-22 20:00] VITALS: BP 130/59; TEMP 98.6; O2SAT 99
[2024-05-22 20:13] VITALS: BP 130/59; TEMP 98.6; O2SAT 99
[2024-05-22] MEDS: IBUPROFEN 600 MG TABLET PO PRN (20:14)
[2024-05-23 08:00] VITALS: BP 150/65; TEMP 97.9; O2SAT 97
[2024-05-23 16:18] VITALS: BP 169/70; TEMP 98.2; O2SAT 98
[2024-05-23 20:52] VITALS: BP 118/59; TEMP 98.4; O2SAT 99
[2024-05-24 08:00] VITALS: BP 146/76; TEMP 98; O2SAT 97
[2024-05-24 08:03] VITALS: BP 146/76
== END 2024-05-24 13:00 | DRG 885 ==
LOC: ER 21:09 → GPS 04-27 03:43
PROVIDERS: ADMIT Psychiatry & Neurology Psychiatry; ATTEND Internal Medicine
DX: F39 Unspecified mood [affective] disorder (principal); F06.8 Other specified mental disorders due to known physiological condition; B95.2 Enterococcus as the cause of diseases classified elsewhere; E87.1 Hypo-osmolality and hyponatremia; N39.0 Urinary tract infection, site not specified; F29 Unspecified psychosis not due to a substance or known physiological condition; I10 Essential (primary) hypertension; G40.909 Epilepsy, unspecified, not intractable, without status epilepticus; Z20.822 Contact with and (suspected) exposure to COVID-19; L40.9 Psoriasis, unspecified; Z88.6 Allergy status to analgesic agent; J42 Unspecified chronic bronchitis; Z88.0 Allergy status to penicillin; Z88.8 Allergy status to other drugs, medicaments and biological substances; Z91.011 Allergy to milk products; Z79.899 Other long term (current) drug therapy; F17.200 Nicotine dependence, unspecified, uncomplicated; E87.5 Hyperkalemia; M19.90 Unspecified osteoarthritis, unspecified site; Z91.410 Personal history of adult physical and sexual abuse; E86.9 Volume depletion, unspecified; F31.2 Bipolar disorder, current episode manic severe with psychotic features; R45.1 Restlessness and agitation; F41.9 Anxiety disorder, unspecified; Z73.6 Limitation of activities due to disability
CPT/HCPCS: 36415; 70450-TC; 71045-TC; 80048-TC; 80053-TC; 80061-TC; 80076-TC; 81001; 82565-TC; 82962-TC; 83735-TC; 84100-TC; 84443-TC; 84550-TC; 85025-TC; 87081-TC; 87086-TC; G0480; J3486